=== PATIENT | female | born 1995 | race Caucasian/White ===

== ENCOUNTER 2022-08-19 15:44 | Outpatient (REF) | payer OTHER, SELFPAY ==
--- NOTE | ~2022-08-19 | US_ITS ---
EXAMINATION: US PELVIS CLINICAL INFORMATION: Menorrhagia. COMPARISON: None available. TECHNIQUE: Ultrasound of the pelvis is performed using both transabdominal and transvaginal transducers along with Doppler. Transvaginal imaging is performed due to inadequate visualization transabdominally. FINDINGS: Uterus: The uterus is anteverted, anteflexed and measures 9.4 cm in length, 4.1 cm in AP, and 5.8 cm in transverse dimension. The double wall endometrial thickness is 1.0 cm. The uterus is smooth in contour and has normal myometrial echogenicity. No visible fibroid. Adnexa: Both ovaries are visualized. There is normal color-flow to the adnexa. There is no ovarian torsion. There is no pelvic ascites or fluid collection. Right ovary measures 3.3 x 2.4 x 2.8 cm and volume 11.6 mL. Left ovary is not visualized. There is no free fluid in the cul-de-sac. US/US pelvic and transvaginal IMPRESSION: 1. Unremarkable uterus and right ovary. 2. The left ovary is not seen. 3. There is no free fluid in the cul-de-sac.
== END 2022-08-19 15:45 | disposition home or self-care (01) ==
LOC: HO.US 15:44
PROVIDERS: Visit Provider Internal Medicine
DX: N95.2 Postmenopausal atrophic vaginitis (principal); D50.8 Other iron deficiency anemias
CPT/HCPCS: 76830; 76856

== ENCOUNTER 2022-10-25 15:47 | Outpatient (REF) | payer OTHER, SELFPAY ==
[2022-10-25 17:26] LABS: MANUAL DIFF FLAG NO
[2022-10-25 17:42] LABS: Basophils Percent Auto 0.5 % (0-2); Eosinophils Absolute Auto 0.2 X10*3/uL (0.0-0.4); Eosinophils Percent Auto 2.4 % (0-4); Hematocrit 39.6 % (37.0-47.0); Hemoglobin 12.2 g/dl (12.0-16.0); Imm Gran Abs Auto 0.02 X10*3/uL (0.00-0.03); Imm Gran Pct Auto 0.3 % (0.0-0.4); Lymphocytes Absolute Auto 2.2 X10*3/uL (1.2-4.9); Lymphocytes Percent Auto 28.5 % (20-40); Mean Corpuscular HGB Conc 30.8 g/dl (31.0-35.0); Mean Corpuscular Hemoglobin 24.1 pg (27.0-33.0); Mean Corpuscular Volume 78.1 fL (80.0-98.0); Mean Platelet Volume 11.9 fL (9.4-12.3); Monocytes Absolute Auto 0.8 X10*3/uL (0.1-1.2); Monocytes Percent Auto 9.6 % (2-11); Neutrophils Absolute Auto 4.6 x10*3/uL (2.0-8.3); Neutrophils Percent Auto 58.7 % (45-73); Platelet Count 286 X10*3/uL (160-400); Red Blood Count 5.07 X10*6/uL (4.20-5.50); Red Cell Distribution Width 17.4 % (11.0-16.0); White Blood Count 7.8 X10*3/uL (4.8-10.8)
[2022-10-25 18:03] LABS: Alanine Aminotransferase 17 U/L (0-31); Albumin Level 4.2 g/dL (3.5-5.0); Alkaline Phosphatase 42 U/L (39-117); Aspartate Amino Transferase 16 U/L (5-31); Bilirubin Direct 0.1 mg/dL (0.0-0.5); Bilirubin Total 0.3 mg/dL (0.0-1.0); Iron 27 mcg/dL (30-160); Percent Iron Saturation 8 % (15-50); Total Iron Binding Capacity 341 mcg/dL (228-428); Total Protein 7.9 g/dL (6.5-8.0); Unsaturated Iron Binding 314 ug/dL
[2022-10-25 18:19] LABS: Ferritin 18 ng/mL (10-122)
== END 2022-10-25 15:48 | disposition home or self-care (01) ==
LOC: HO.HHCL 15:47
PROVIDERS: Visit Provider Internal Medicine
DX: D50.0 Iron deficiency anemia secondary to blood loss (chronic) (principal); E55.9 Vitamin D deficiency, unspecified
CPT/HCPCS: 36415; 80076; 82728; 83540; 85025

== ENCOUNTER 2023-03-03 17:03 | Inpatient (IN) | payer OTHER, SELFPAY ==
--- NOTE | ~2023-03-03 | XR_ITS ---
EXAMINATION: XR CHEST 2 VIEW CLINICAL INFORMATION: Weakness and dizziness COMPARISON: None TECHNIQUE: PA and lateral views of the chest obtained. FINDINGS: The lungs are clear. There are no pleural effusions. The cardiomediastinal silhouette is normal. XR/XR chest 2V IMPRESSION: No acute cardiopulmonary disease.
--- NOTE | 2023-03-03 17:32 | ED.GENADULT ---
HPI - General Adult General Chief complaint: Dizziness Stated complaint: weakness,dizziness Time Seen by Provider: 03/03/23 19:39 Source: patient Mode of arrival: ambulatory Limitations: no limitations History of Present Illness HPI narrative: Patient with no history of diabetes runs in family comes here for few days of increased thirst increased appetite increased urination feeling dizzy lightheaded on arrival patient's blood sugar was 735. Patient last physical in 09/03 with normal labs no history of steroid use no recent no nausea patient vomited once earlier today no abdominal pain no history of pancreatitis Related Data Home Medications Medication Instructions Recorded Confirmed No Known Home Meds 03/03/23 03/03/23 Allergies Allergy/AdvReac Type Severity Reaction Status Date / Time No Known Allergies Allergy Verified 03/03/23 17:35 Review of Systems Review of Systems: Yes all other systems are reviewed and are negative [facility] Social History Social History Household Members: Family Housing: Apartment Do you presently have visiting nurse or other home services: No Patient Tobacco Use Status: Never used Tobacco Smoked in Last 30 Days: No Use of substances other than those prescribed or required for medical reasons: No Have you been hit, kicked, punched, or otherwise hurt by someone within the past year? If so, by whom?: No Do you feel safe in your current relationship?: No Is there a partner from a previous relationship who is making you feel unsafe now?: No Are you made to feel afraid or neglected: No Advance Directives: No Advance Directives Information Provided: No Do you have thoughts of harming others: None Do you have a plan to hurt others: No Plan Recently lost weight without trying: No How much weight loss: Not applicable Eating poorly because of decreased appetite: No Nutrition screen score: 0 Nutrition Risks: No Nutritional Risk Patient : No : No Poor oral hygiene: No Physical Exam ED Vital Signs: Vital Signs - 24 hr 03/03/23 17:33 03/03/23 20:07 Temperature 98.0 F 98.3 F Pulse Rate 92 94 Respiratory Rate 16 20 Blood Pressure 156/88 H 137/88 Pulse Oximetry 99 97 Oxygen Delivery Method Room Air Room Air BMI result Body Mass Index 33.2 Appearance: Alert. Oriented X3. No acute distress. Eyes: PERRLA, no pallor / icterus ENT: Pharynx normal. Oral Mucosa dry Neck: Normal inspection. Neck supple. CVS: Normal heart rate and rhythm. Pulses normal. Respiratory: No respiratory distress. Equal air entry bilateral, no wheezing/rales/rhonchi Abdomen: Soft and nontender. Bowel sounds are present, no mass palpable, no CVA tenderness Skin: Skin warm and dry. Normal skin color. Normal skin turgor. Extremities: No lower extremity edema. No calf tenderness Neuro: Oriented X 3. No motor deficit. Course Course Course Narrative: RME performed by Gabby Henao PA-C. Patient is a 27 year old assigned female at presenting to the emergency department with weakness and dizziness. Labs, imaging, and swabs ordered. Patient placed back in the waiting room pending room availability and results. Medications Administered Generic Name Dose Route Start Last Admin Trade Name Freq PRN Reason Stop Dose Admin Sodium Chloride 1,000 mls @ 125 mls/hr 03/03/23 20:22 03/03/23 21:59 Ns IVCONT 03/04/23 04:21 125 mls/hr .Q8H ONE Infusion Insulin Glargine 10 unit 03/03/23 21:00 03/03/23 22:01 Insulin Glargine,Hum.Rec.Anlog 100 Unit/Ml 10 Ml Vial SUBCUT 10 unit BEDTIME BENNIE Administration Insulin Human Lispro 0 unit 03/03/23 21:00 03/03/23 21:59 Insulin Lispro 100 Unit/Ml 3 Ml Vial SUBCUT 10 unit QIDACHS BENNIE Administration Protocol Sodium Chloride 3 ml 03/04/23 00:00 03/04/23 00:31 0.9 % Sodium Chloride Flush 3 Ml Syringe IVFLUSH 3 ml QSHIFT BENNIE Administration Discontinued Medications Generic Name Dose Route Start Last Admin Trade Name Freq PRN Reason Stop Dose Admin Sodium Chloride 1,000 mls @ 999 mls/hr 03/03/23 19:46 03/03/23 20:37 Ns IV 03/03/23 20:46 Infused .Q1H1M ONE Infusion Sodium Chloride 1,000 mls @ 999 mls/hr 03/03/23 20:47 03/03/23 21:51 Ns IV 03/03/23 21:47 Infused .Q1H1M ONE Infusion Insulin Human Lispro 14 unit 03/03/23 19:46 03/03/23 20:06 Insulin Lispro 100 Unit/Ml 3 Ml Vial SUBCUT 03/03/23 19:47 14 unit ONCE ONE Administration Insulin Human Regular 5 unit 03/03/23 20:21 03/03/23 20:41 Insulin Regular, Human 100 Unit/Ml 3 Ml Vial IVPUSH 03/03/23 20:22 5 unit ONCE ONE Administration Medical Decision Making Medical Decision Making [facility] Narrative: Patient with hyperglycemia type 1 diabetes with mild DKA which resolved after IV fluids and insulin admit patient for further management patient does have pseudohyponatremia secondary to hyperglycemia Differential Diagnosis Differential Diagnoses: The differential diagnosis associated with the presentation includes Diabetes/ ketoacidosis Admission/Observation Consideration of admission/observation: Escalation of care including admission/observation considered Consult Healthcare Provider Management of the patient was discussed with: Hospitalist Lab Data [facility] Lab Attestation statement: I reviewed the patient's lab results. 03/03/23 18:26 03/04/23 00:04 Labs: Lab Results 03/03/23 03/03/23 03/03/23 Range/Units 18: 19:51 20:11 WBC 9.2 (4.8-10.8) X10*3/uL RBC 5.09 (4.20-5.50) X10*6/uL Hgb 11.6 L (12.0-16.0) g/dl Hct 38.1 (37.0-47.0) % MCV 74.9 L (80.0-98.0) fL MCH 22.8 L (27.0-33.0) pg MCHC 30.4 L (31.0-35.0) g/dl RDW 13.9 (11.0-16.0) % Plt Count 274 (160-400) X10*3/uL MPV 12.7 H (9.4-12.3) fL Immature Gran % (Auto) 0.2 (0.0-0.4) % Neut % (Auto) 66.0 (45-73) % Lymph % (Auto) 22.7 (20-40) % [place] % (Auto) 9.4 (2-11) % Eos % (Auto) 1.0 (0-4) % Baso % (Auto) 0.7 (0-2) % Lymph # (Auto) 2.1 (1.2-4.9) X10*3/uL [place] # (Auto) 0.9 (0.1-1.2) X10*3/uL Eos # (Auto) 0.1 (0.0-0.4) X10*3/uL Baso # (Auto) 0.1 (0.0-0.2) X10*3/uL Abs Immat Gran (auto) 0.02 (0.00-0.03) X10*3/uL Absolute Neuts (auto) 6.1 (2.0-8.3) x10*3/uL Absolute Nucleated RBC 0.000 (0.0-0.012) X10*3/uL Nucleated RBC % (auto) 0.0 (0.0-0.2) /100WBC PT 11.1 (11.1-13.3) SEC INR 0.9 (0.9-1.1) APTT 30.1 (26.0-36.4) SEC Sodium 128 L (135-145) mmol/L Potassium 3.8 (3.3-5.1) mmol/L Chloride 96 (96-108) mmol/L Carbon Dioxide 18 L (22-29) mmol/L Anion Gap 18 (12-20) BUN 15 (9-16) mg/dL Creatinine 1.22 (0.5-1.4) mg/dL Estim Creat Clear Calc 72.8 Estimated GFR 54 POC Glucose > 600 H* (60-115) mg/dL Random Glucose 735 H* (60-115) mg/dL Calcium 9.4 (8.4-10.2) mg/dL Magnesium 1.9 (1.6-2.6) mg/dL Total Bilirubin 0.5 (0.0-1.0) mg/dL AST 11 (5-31) U/L ALT 14 (0-31) U/L Alkaline Phosphatase 63 (39-117) U/L Troponin I High Sens < 2.7 (<3.5-17.0) ng/L Total Protein 8.5 H (6.5-8.0) g/dL Albumin 4.4 (3.5-5.0) g/dL Beta-Hydroxybutyrate 4.44 H (0.02-0.27) mmol/L Beta HCG, Quant < 2 mIU/mL Urine Color Yellow Urine Appearance Clear Urine pH 5.0 (5.0-9.0) Ur Specific [place] >= 1.030 H (1.005-1.025) Urine Protein Negative (Neg-Trace) mg/dL Urine Glucose (UA) >=1000 H (Negative) mg/dL Urine Ketones 80 (Negative) mg/dL Urine Blood Negative (Negative) Urine Nitrite Negative (Negative) Ur Leukocyte Esterase Negative (Negative) Urine RBC 0-2 (0-2) /HPF Urine WBC 0-5 (0-5) /HPF Ur Squamous Epith Cells 0-2 (0-2) /HPF Urine Bacteria None Seen (None Seen) Hyaline Casts 3-5 (0-2) /LPF Urine Opiates Screen Not Detected (Not Detect) Urine Fentanyl Screen Not Detected (Not Detect) Ur Barbiturates Screen Not Detected (Not Detect) Ur Phencyclidine Scrn Not Detected (Not Detect) Ur Amphetamines Screen Not Detected (Not Detect) U Benzodiazepines Scrn Not Detected (Not Detect) Urine Cocaine Screen Not Detected (Not Detect) U Marijuana (THC) Screen Not Detected (Not Detect) Influenza Type A (PCR) NEGATIVE (Negative) Influenza Type B (PCR) NEGATIVE (Negative) RSV RNA Qual (PCR) NEGATIVE (Negative) SARS-CoV-2 RNA (RT-PCR) NEGATIVE (Negative) Independent Interpretation I performed an independent interpretation of an: EKG Interpretation: Normal sinus rhythm heart rate 104 beats per minute sinus tachycardia no acute ST change and no acute ischemia Critical Care Time Critical Care Time Critical Care Time: Yes Total Critical Care Time: 55 Attestation: The patient was critically ill with a high probability of imminent or life threatening deterioration. I spent greater than 60 minutes of discontinuous time evaluating the patient,delivering critical care at the bedside, discussing and evaluating pertinent data with consultants. Critical care time does not include time spent performing separately billable procedures or teaching. Total time spent performing critical care was 55 minutes. Discharge Plan Discharge Clinical Impression: Diabetic ketoacidosis associated with type 1 diabetes mellitus Patient Disposition: Admitted As Inpatient
[2023-03-03 17:33] VITALS: BP 156/88; PULSE 92; RESP 16; TEMP 36.7; O2SAT 99; BMI 33.2
--- NOTE | 2023-03-03 17:33 | ECG_ITS ---
Test Reason : DIZZINESS Blood Pressure : / mmHG Vent. Rate : 104 BPM Atrial Rate : 104 BPM P-R Int : 128 ms QRS Dur : 078 ms QT Int : 366 ms P-R-T Axes : 070 028 040 degrees QTc Int : 481 ms Sinus tachycardia Possible Left atrial enlargement Borderline ECG No previous ECGs available Referred By: Gabby Henao Electronically Signed By:MANUELA WING MD
[2023-03-03 18:32] LABS: MANUAL DIFF FLAG NO
[2023-03-03 18:39] LABS: INTERNATIONAL NORM RATIO 0.9 (0.9-1.1); Prothrombin Time 11.1 SEC (11.1-13.3)
[2023-03-03 18:41] LABS: Partial Thromboplastin Time 30.1 SEC (26.0-36.4)
[2023-03-03 18:51] LABS: Basophils Absolute Auto 0.1 X10*3/uL (0.0-0.2); Basophils Percent Auto 0.7 % (0-2); Eosinophils Absolute Auto 0.1 X10*3/uL (0.0-0.4); Hematocrit 38.1 % (37.0-47.0); Hemoglobin 11.6 g/dl (12.0-16.0); Imm Gran Abs Auto 0.02 X10*3/uL (0.00-0.03); Imm Gran Pct Auto 0.2 % (0.0-0.4); Lymphocytes Absolute Auto 2.1 X10*3/uL (1.2-4.9); Lymphocytes Percent Auto 22.7 % (20-40); Mean Corpuscular HGB Conc 30.4 g/dl (31.0-35.0); Mean Corpuscular Hemoglobin 22.8 pg (27.0-33.0); Mean Corpuscular Volume 74.9 fL (80.0-98.0); Mean Platelet Volume 12.7 fL (9.4-12.3); Monocytes Absolute Auto 0.9 X10*3/uL (0.1-1.2); Monocytes Percent Auto 9.4 % (2-11); Neutrophils Absolute Auto 6.1 x10*3/uL (2.0-8.3); Platelet Count 274 X10*3/uL (160-400); Red Blood Count 5.09 X10*6/uL (4.20-5.50); Red Cell Distribution Width 13.9 % (11.0-16.0); White Blood Count 9.2 X10*3/uL (4.8-10.8)
[2023-03-03 19:03] LABS: Troponin-I High Sensitivity < 2.7 ng/L (<3.5-17.0)
[2023-03-03 19:06] LABS: Alanine Aminotransferase 14 U/L (0-31); Albumin Level 4.4 g/dL (3.5-5.0); Alkaline Phosphatase 63 U/L (39-117); Anion Gap 18 (12-20); Aspartate Amino Transferase 11 U/L (5-31); Bilirubin Total 0.5 mg/dL (0.0-1.0); Blood Urea Nitrogen 15 mg/dL (9-16); Calcium 9.4 mg/dL (8.4-10.2); Carbon Dioxide 18 mmol/L (22-29); Chloride 96 mmol/L (96-108); Creatinine Clr Calc Pharmacy 72.8; Estimated Glomerular Filt Rate 54; Glucose Random 735 mg/dL (60-115); HCG Quantitative < 2 mIU/mL; Magnesium 1.9 mg/dL (1.6-2.6); Potassium 3.8 mmol/L (3.3-5.1); Sodium 128 mmol/L (135-145); Total Protein 8.5 g/dL (6.5-8.0)
[2023-03-03 19:12] LABS: Influenza A PCR NEGATIVE (Negative); Influenza B PCR NEGATIVE (Negative); Resp Syncy Virus RNA Qual PCR NEGATIVE (Negative); SARS COV2 PCR INHOUSE NEGATIVE (Negative)
--- NOTE | 2023-03-03 19:24 | PC.NURSE ---
critical lab result glucose 735 pt brought back from the waiting room and prooviders made aware. pt state she feels dizzy. family history of diabeties.
[2023-03-03 19:56] LABS: Glucose, Whole Blood > 600 mg/dL (60-115)
[2023-03-03] MEDS: 0.9 % Sodium Chloride 1,000 ML 999 ML IV ×2 (20:03→20:55)
[2023-03-03 20:06] LABS: Beta-Hydroxybutyrate 4.44 mmol/L (0.02-0.27)
[2023-03-03] MEDS: Insulin Lispro 100 UNIT/ML 3 ML VIAL 14 UNIT SUBCUT (20:06)
[2023-03-03 20:07] VITALS: BP 137/88; PULSE 94; RESP 20; TEMP 36.8; O2SAT 97
[2023-03-03 20:18] LABS: Appearance Urine Clear; Color Urine Yellow; Glucose Urine UA >=1000 mg/dL (Negative); Leukocyte Esterase Urine Negative (Negative); Nitrite Urine Negative (Negative); Specific Gravity - Urine >= 1.030 (1.005-1.025); UMIC TRIGGER UACC YES; Urine Blood Negative (Negative); Urine Ketones 80 mg/dL (Negative); Urine Protein Negative (Neg-Trace)
[2023-03-03 20:21] LABS: Bacteria Urine None Seen (None Seen); RBC Urine 0-2 /HPF (0-2); Squamous Epithelial Cell Urine 0-2 /HPF (0-2); WBC Urine 0-5 /HPF (0-5)
--- NOTE | 2023-03-03 20:21 | P.HPHOSP_ITS ---
History of Present Illness Date of Service: 03/03/23 Chief Complaint: Polyuria polydipsia This is a 27-year-old female with no pertinent past medical history and not on prescription medications who presents to the emergency department for evaluation of polyuria and polydipsia. Patient states her symptoms started 1 week prior to presentation. No history of similar symptoms in the past. Does have a family history of diabetes mellitus, unknown type 1 or type 2. Patient states she has no pertinent past medical history and only takes [id number] allergy medications p.r.n.. On the day of presentation, patient also started having nausea and nonbloody emesis. Denies tobacco use but admits occasional alcohol use. No fever, chills, chest discomfort, palpitations, shortness of breath, abdominal pain, changes in bowel habits. In the emergency department, blood glucose found to be significantly elevated. Review of Systems 2 Constitutional: Constitutional: Reports fatigue and Reports lethargy ENT: Reports system reviewed and no additional complaints, except as documented Cardiovascular: Cardiovascular: Reports no additional cardiovascular complaints Respiratory: Respiratory: Reports no additional respiratory complaints Gastrointestinal: Gastrointestinal: Reports no additional gastrointestinal complaints Genitourinary: Genitourinary: Reports no additional female genitourinary complaints Endocrine: Endocrine: Reports fatigue, Reports polydipsia and Reports polyuria PMFSH Pertinent family history: No family history of early CAD Social History Smoked in Last 30 Days: No Use of substances other than those prescribed or required for medical reasons: No Advance Directives: No Advance Directives Information Provided: No Meds Allergies Allergy/AdvReac Type Severity Reaction Status Date / Time No Known Allergies Allergy Verified 03/03/23 17:35 Active Medications: Current Medications Sodium Chloride (Ns) 1,000 mls @ 999 mls/hr IV .Q1H1M ONE Stop: 03/03/23 20:46 Last Admin: 03/03/23 20:03 Dose: 999 mls/hr Home Medications Medication Instructions Recorded Confirmed Last Taken Type No Known Home Meds 03/03/23 03/03/23 Unknown History Physical Exam 2 Vital Signs and Narrative: Vital Signs: Last Vital Signs Temp 98.3 F 03/03/23 20:07 Pulse 94 03/03/23 20:07 Resp 20 03/03/23 20:07 BP 137/88 11/20/23 20:07 Pulse Ox 97 03/03/23 20:07 O2 Del Method Room Air 03/03/23 20:07 BMI result Body Mass Index 33.2 Middle-aged female lying in bed in no distress Neck supple, no JVD Regular rate and rhythm, S1-S2 heard Regular breath sounds bilaterally, no wheezing or crackles appreciated Abdomen soft nontender, no guarding, no rigidity Patient is awake, alert and oriented to self, place, time and person ; no focal motor deficit Psych: Normal mood No pedal edema Results Labs 03/03/23 18:26 03/03/23 18:26 Labs: Laboratory Results - last 24 hr 03/03/23 03/03/23 03/03/23 18:26 19:51 20:11 MCV 74.9 L MCH 22.8 L MCHC 30.4 L RDW 13.9 Plt Count 274 MPV 12.7 H Immature Gran % (Auto) 0.2 Neut % (Auto) 66.0 Lymph % (Auto) 22.7 [place] % (Auto) 9.4 Eos % (Auto) 1.0 Baso % (Auto) 0.7 Lymph # (Auto) 2.1 [place] # (Auto) 0.9 Eos # (Auto) 0.1 Baso # (Auto) 0.1 Abs Immat Gran (auto) 0.02 Absolute Neuts (auto) 6.1 Absolute Nucleated RBC 0.000 Nucleated RBC % (auto) 0.0 PT 11.1 INR 0.9 APTT 30.1 Anion Gap 18 Estim Creat Clear Calc 72.8 Estimated GFR 54 POC Glucose > 600 H* Random Glucose 735 H* Calcium 9.4 Magnesium 1.9 Total Bilirubin 0.5 AST 11 ALT 14 Alkaline Phosphatase 63 Total Protein 8.5 H Albumin 4.4 Beta-Hydroxybutyrate 4.44 H Beta HCG, Quant < 2 Urine Color Yellow Urine Appearance Clear Urine pH 5.0 Ur Specific [place] >= 1.030 H Urine Protein Negative Urine Glucose (UA) >=1000 H Urine Ketones 80 Urine Blood Negative Urine Nitrite Negative Ur Leukocyte Esterase Negative Influenza Type A (PCR) NEGATIVE Influenza Type B (PCR) NEGATIVE RSV RNA Qual (PCR) NEGATIVE SARS-CoV-2 RNA (RT-PCR) NEGATIVE Imaging Radiologist's Impressions: Impressions Chest X-Ray 03/03/23 18:45 IMPRESSION: No acute cardiopulmonary disease. Assessment and Plan (1) Hyperglycemia due to diabetes mellitus: Status: Acute Plan This is a 27-year-old female with no pertinent past medical history and not on prescription medications who presents to the emergency department for evaluation of polyuria and polydipsia. #. Uncontrolled new onset diabetes mellitus with hyperglycemia: Mild DKA upon admission which resolved. Initiating basal bolus insulin regimen. Continue IV crystalloid resuscitation. Diabetes Education while inpatient. Closely monitor blood glucose and optimize anti hyperglycemics prior to discharge. #. Microcytic anemia: Obtaining iron panel #. Pseudo hyponatremia due to hyperglycemia Diet: Diabetic diet DVT prophylaxis: None. Patient is ambulatory Admit as inpatient and will require two night minimum hospital stay for blood glucose monitoring, optimization of antihyperglycemics (as above), which is not possible in a lesser acute setting. Quality Stroke Does the patient have a stroke diagnosis?: No VTE Prior VTE?: No VTE Risk Level:: Medical - low VTE Device Contraindication: Treatment Not Indicated VTE Drug Contraindication: Treatment Not Indicated
[2023-03-03 20:34] LABS: Amphetamine Screen Urine Not Detected (Not Detect); Barbiturates, Urine Not Detected (Not Detect); Benzodiazepines Screen Urine Not Detected (Not Detect); Cannabinoid Screen Urine Not Detected (Not Detect); Cocaine Screen Urine Not Detected (Not Detect); Fentanyl, urine Not Detected (Not Detect); Opiate Screen Urine Not Detected (Not Detect); Phencyclidine Screen Urine Not Detected (Not Detect)
[2023-03-03] MEDS: 0.9 % Sodium Chloride 1,000 ML 125 ML IVCONT (20:40)
[2023-03-03] MEDS: Insulin Regular, Human 100 UNIT/ML 3 ML VIAL IVPUSH (20:41)
[2023-03-03 20:46] LABS: Glucose, Whole Blood 599 mg/dL (60-115)
[2023-03-03 20:46] LABS: Glucose, Whole Blood > 600 mg/dL (60-115)
[2023-03-03 21:01] LABS: VBG Base Excess -9.1 mmol/L; VBG HCO3 15 mmol/L (22-26); VBG pCO2 30 mmHg; VBG pH 7.31 (7.32-7.43); VBG pO2 50 mmHg
[2023-03-03 21:06] LABS: Iron 53 mcg/dL (30-160); Percent Iron Saturation 16 % (15-50); Total Iron Binding Capacity 327 mcg/dL (228-428); Unsaturated Iron Binding 274 ug/dL
[2023-03-03 21:11] LABS: Venous Blood Gas Refer to POC result
[2023-03-03 21:24] LABS: Glucose, Whole Blood 431 mg/dL (60-115)
[2023-03-03 21:52] VITALS: BP 122/62; PULSE 102; RESP 20; O2SAT 99
[2023-03-03 21:58] LABS: Glucose, Whole Blood 351 mg/dL (60-115)
[2023-03-03] MEDS: Insulin Lispro 100 UNIT/ML 3 ML VIAL SUBCUT (21:59)
[2023-03-03] MEDS: Insulin Glargine,Hum.rec.anlog 100 UNIT/ML 10 ML VIAL 10 UNIT SUBCUT (22:01)
[2023-03-03 23:52] VITALS: BP 133/62; PULSE 89; RESP 20; TEMP 36.1; O2SAT 96
[2023-03-04] VITALS (7 sets, daily range): BP systolic 111–135; BP diastolic 62–88; PULSE 80–89; RESP 12–20; TEMP 36–36.6; O2SAT 96–100; BMI 34.2
[2023-03-04 00:28] LABS: Anion Gap 12 (12-20); Blood Urea Nitrogen 12 mg/dL (9-16); Calcium 8.5 mg/dL (8.4-10.2); Carbon Dioxide 19 mmol/L (22-29); Chloride 108 mmol/L (96-108); Estimated Glomerular Filt Rate > 60; Glucose Random 181 mg/dL (60-115); Potassium 3.1 mmol/L (3.3-5.1); Sodium 136 mmol/L (135-145)
[2023-03-04] MEDS: 0.9 % Sodium Chloride Flush 3 ML SYRINGE IVFLUSH ×4 (00:31→22:15)
[2023-03-04 05:20] LABS: Estimated Average Glucose 272 mg/dL; Hemoglobin A1c % 11.1 % (<6.0)
[2023-03-04] MEDS: Potassium Chloride Packet 20 MEQ PACKET 40 MEQ PO (05:45)
--- NOTE | 2023-03-04 07:12 | PHA.MEDREC ---
Pharmacy Consult ? Medication Reconciliation Pharmacy has completed the medication reconciliation.med rec complete by Brissa on 03/03
[2023-03-04 07:41] LABS: Glucose, Whole Blood 210 mg/dL (60-115)
[2023-03-04 07:49] LABS: Glucose, Whole Blood > 600 mg/dL (60-115)
[2023-03-04 07:57] LABS: MANUAL DIFF FLAG NO
[2023-03-04 08:09] LABS: Basophils Absolute Auto 0.1 X10*3/uL (0.0-0.2); Basophils Percent Auto 0.8 % (0-2); Eosinophils Absolute Auto 0.2 X10*3/uL (0.0-0.4); Eosinophils Percent Auto 2.6 % (0-4); Hemoglobin 11.3 g/dl (12.0-16.0); Imm Gran Abs Auto 0.02 X10*3/uL (0.00-0.03); Imm Gran Pct Auto 0.3 % (0.0-0.4); Lymphocytes Absolute Auto 2.5 X10*3/uL (1.2-4.9); Mean Corpuscular HGB Conc 30.5 g/dl (31.0-35.0); Mean Corpuscular Hemoglobin 23.2 pg (27.0-33.0); Monocytes Absolute Auto 0.6 X10*3/uL (0.1-1.2); Monocytes Percent Auto 8.8 % (2-11); Neutrophils Absolute Auto 3.8 x10*3/uL (2.0-8.3); Neutrophils Percent Auto 52.5 % (45-73); Platelet Count 263 X10*3/uL (160-400); Red Blood Count 4.87 X10*6/uL (4.20-5.50); Red Cell Distribution Width 14.1 % (11.0-16.0); White Blood Count 7.2 X10*3/uL (4.8-10.8)
[2023-03-04] MEDS: Insulin Lispro 100 UNIT/ML 3 ML VIAL SUBCUT ×4 (08:18→22:03)
[2023-03-04 08:23] LABS: Anion Gap 14 (12-20); Blood Urea Nitrogen 9 mg/dL (9-16); Calcium 8.2 mg/dL (8.4-10.2); Carbon Dioxide 18 mmol/L (22-29); Chloride 109 mmol/L (96-108); Creatinine Clr Calc Pharmacy 118.7; Estimated Glomerular Filt Rate > 60; Glucose Random 231 mg/dL (60-115); Potassium 3.8 mmol/L (3.3-5.1); Sodium 137 mmol/L (135-145)
--- NOTE | 2023-03-04 09:33 | MHC.CM.PN ---
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 PT ALSO REQUESTED CM MAKE A FOLLOW UP APPT W/HER PCP D/T NEW DIABETES, MESSAGE SENT TO [facility] SPECIAL[facility]. PT VERIFIES PCP IS VASILIY PIZARRO HOWEVER [facility] INSURANCE CLAIMS SPECIALIST TO CONFIRM, FULLY VACCINATED AGAINST COVID 19 EXCEPT THIS YEARS BOOSTER, PT EDUCATED ON AND DECLINES TO COMPLETE A HCP.
[2023-03-04 10:58] LABS: Glucose, Whole Blood 378 mg/dL (60-115)
--- NOTE | 2023-03-04 12:11 | HO.PM.IMPN ---
Subjective Subjective Date of Service: 03/04/23 Review of Systems Follow up new onset DM No pain, nausea or vomiting Physical Exam Vital Signs: Vital Signs: Last Vital Signs Temp 97.8 F 03/04/23 11:00 Pulse 86 03/04/23 11:00 Resp 18 03/04/23 11:00 BP 123/66 03/04/23 11:00 Pulse Ox 100 03/04/23 11:00 O2 Del Method Room Air 03/04/23 11:00 BMI result Body Mass Index 34.2 Appearing in no acute distress lung sounds are clear to auscultation heart regular rate rhythm, clear S1, S2 positive bowel sounds, abdomen is soft, nontender neuro patient is alert x3, no focal deficits Objective Data Active Medications Acetaminophen (Acetaminophen 325 Mg Tablet) 650 mg PO Q6H PRN PRN Reason: Pain, Mild (Pain Scale 1-3) Dextrose (Dextrose 50 % 25 Gm/50 Ml Syringe) 25 gm IVPUSH Q15M PRN; Protocol PRN Reason: per Hypoglycemia Standing Ord. Glucose (Glucose Gel 15 Gm Gel..Gram.) 15 gm PO Q15M PRN; Protocol PRN Reason: per Hypoglycemia Standing Ord. Insulin Glargine (Insulin Glargine,Hum.Rec.Anlog 100 Unit/Ml 10 Ml Vial) 10 unit SUBCUT BEDTIME [facility] Last Admin: 03/03/23 22:01 Dose: 10 unit Documented By: DRAGAN Insulin Human Lispro (Insulin Lispro 100 Unit/Ml 3 Ml Vial) 0 unit SUBCUT QIDACHS [facility]; Protocol Last Admin: 03/04/23 08:18 Dose: 4 unit Documented By: AFIA Melatonin (Melatonin 3 Mg Tablet) 6 mg PO BEDTIME PRN PRN Reason: Insomnia Ondansetron HCl (Ondansetron Hcl 4 Mg/2 Ml Vial) 4 mg IVPUSH Q8H PRN PRN Reason: Nausea and Vomiting Sodium Chloride (0.9 % Sodium Chloride Flush 3 Ml Syringe) 3 ml IVFLUSH [facility] Last Admin: 03/04/23 08:18 Dose: 3 ml Documented By: AFIA Labs 03/04/23 07:23 03/04/23 07:23 Labs: Laboratory Results - last 24 hr 11/20/23 11/20/23 11/20/23 18:26 19:51 19:52 MCV 74.9 L MCH 22.8 L MCHC 30.4 L RDW 13.9 Plt Count 274 MPV 12.7 H Immature Gran % (Auto) 0.2 Neut % (Auto) 66.0 Lymph % (Auto) 22.7 [place] % (Auto) 9.4 Eos % (Auto) 1.0 Baso % (Auto) 0.7 Lymph # (Auto) 2.1 [place] # (Auto) 0.9 Eos # (Auto) 0.1 Baso # (Auto) 0.1 Abs Immat Gran (auto) 0.02 Absolute Neuts (auto) 6.1 Absolute Nucleated RBC 0.000 Nucleated RBC % (auto) 0.0 PT 11.1 INR 0.9 APTT 30.1 VBG pH VBG pCO2 VBG pO2 VBG HCO3 VBG O2 Saturation VBG Base Excess Anion Gap 18 Estim Creat Clear Calc 72.8 Estimated GFR 54 POC Glucose > 600 H* > 600 H* Random Glucose 735 H* Estimat Average Glucose Hemoglobin A1c % Calcium 9.4 Magnesium 1.9 Iron TIBC % Saturation Unsat Iron Binding Total Bilirubin 0.5 AST 11 ALT 14 Alkaline Phosphatase 63 Total Protein 8.5 H Albumin 4.4 Beta-Hydroxybutyrate 4.44 H Beta HCG, Quant < 2 Hold Yellow Top Urine Color Urine Appearance Urine pH Ur Specific [place] Urine Protein Urine Glucose (UA) Urine Ketones Urine Blood Urine Nitrite Ur Leukocyte Esterase Urine RBC Urine WBC Ur Squamous Epith Cells Urine Bacteria Hyaline Casts Urine Opiates Screen Urine Fentanyl Screen Ur Barbiturates Screen Ur Phencyclidine Scrn Ur Amphetamines Screen U Benzodiazepines Scrn Urine Cocaine Screen U Marijuana (THC) Screen Influenza Type A (PCR) NEGATIVE Influenza Type B (PCR) NEGATIVE RSV RNA Qual (PCR) NEGATIVE SARS-CoV-2 RNA (RT-PCR) NEGATIVE 03/03/23 03/03/23 03/03/23 20:11 20:36 20:40 MCV MCH MCHC RDW Plt Count MPV Immature Gran % (Auto) Neut % (Auto) Lymph % (Auto) [place] % (Auto) Eos % (Auto) Baso % (Auto) Lymph # (Auto) [place] # (Auto) Eos # (Auto) Baso # (Auto) Abs Immat Gran (auto) Absolute Neuts (auto) Absolute Nucleated RBC Nucleated RBC % (auto) PT INR APTT VBG pH VBG pCO2 VBG pO2 VBG HCO3 VBG O2 Saturation VBG Base Excess Anion Gap Estim Creat Clear Calc Estimated GFR POC Glucose > 600 H* 599 H* Random Glucose Estimat Average Glucose Hemoglobin A1c % Calcium Magnesium Iron TIBC % Saturation Unsat Iron Binding Total Bilirubin AST ALT Alkaline Phosphatase Total Protein Albumin Beta-Hydroxybutyrate Beta HCG, Quant Hold Yellow Top Urine Color Yellow Urine Appearance Clear Urine pH 5.0 Ur Specific [place] >= 1.030 H Urine Protein Negative Urine Glucose (UA) >=1000 H Urine Ketones 80 Urine Blood Negative Urine Nitrite Negative Ur Leukocyte Esterase Negative Urine RBC 0-2 Urine WBC 0-5 Ur Squamous Epith Cells 0-2 Urine Bacteria None Seen Hyaline Casts 3-5 Urine Opiates Screen Not Detected Urine Fentanyl Screen Not Detected Ur Barbiturates Screen Not Detected Ur Phencyclidine Scrn Not Detected Ur Amphetamines Screen Not Detected U Benzodiazepines Scrn Not Detected Urine Cocaine Screen Not Detected U Marijuana (THC) Screen Not Detected Influenza Type A (PCR) Influenza Type B (PCR) RSV RNA Qual (PCR) SARS-CoV-2 RNA (RT-PCR) 03/03/23 03/03/23 03/03/23 20:45 20:51 21:20 MCV MCH MCHC RDW Plt Count MPV Immature Gran % (Auto) Neut % (Auto) Lymph % (Auto) [place] % (Auto) Eos % (Auto) Baso % (Auto) Lymph # (Auto) [place] # (Auto) Eos # (Auto) Baso # (Auto) Abs Immat Gran (auto) Absolute Neuts (auto) Absolute Nucleated RBC Nucleated RBC % (auto) PT INR APTT VBG pH 7.31 L VBG pCO2 30 VBG pO2 50 VBG HCO3 15 L VBG O2 Saturation 77.0 VBG Base Excess -9.1 Anion Gap Estim Creat Clear Calc Estimated GFR POC Glucose 431 H* Random Glucose Estimat Average Glucose Hemoglobin A1c % Calcium Magnesium Iron 53 TIBC 327 % Saturation 16 Unsat Iron Binding 274 Total Bilirubin AST ALT Alkaline Phosphatase Total Protein Albumin Beta-Hydroxybutyrate Beta HCG, Quant Hold Yellow Top Urine Color Urine Appearance Urine pH Ur Specific [place] Urine Protein Urine Glucose (UA) Urine Ketones Urine Blood Urine Nitrite Ur Leukocyte Esterase Urine RBC Urine WBC Ur Squamous Epith Cells Urine Bacteria Hyaline Casts Urine Opiates Screen Urine Fentanyl Screen Ur Barbiturates Screen Ur Phencyclidine Scrn Ur Amphetamines Screen U Benzodiazepines Scrn Urine Cocaine Screen U Marijuana (THC) Screen Influenza Type A (PCR) Influenza Type B (PCR) RSV RNA Qual (PCR) SARS-CoV-2 RNA (RT-PCR) 03/03/23 03/04/23 03/04/23 21:54 00:04 07:23 MCV 76.0 L MCH 23.2 L MCHC 30.5 L RDW 14.1 Plt Count 263 MPV 13.0 H Immature Gran % (Auto) 0.3 Neut % (Auto) 52.5 Lymph % (Auto) 35.0 [place] % (Auto) 8.8 Eos % (Auto) 2.6 Baso % (Auto) 0.8 Lymph # (Auto) 2.5 [place] # (Auto) 0.6 Eos # (Auto) 0.2 Baso # (Auto) 0.1 Abs Immat Gran (auto) 0.02 Absolute Neuts (auto) 3.8 Absolute Nucleated RBC 0.000 Nucleated RBC % (auto) 0.0 PT INR APTT VBG pH VBG pCO2 VBG pO2 VBG HCO3 VBG O2 Saturation VBG Base Excess Anion Gap 12 14 Estim Creat Clear Calc 107.0 118.7 Estimated GFR > 60 > 60 POC Glucose 351 H* Random Glucose 181 H 231 H Estimat Average Glucose 272 Hemoglobin A1c % 11.1 H Calcium 8.5 D 8.2 L Magnesium Iron TIBC % Saturation Unsat Iron Binding Total Bilirubin AST ALT Alkaline Phosphatase Total Protein Albumin Beta-Hydroxybutyrate Beta HCG, Quant Hold Yellow Top See Note Urine Color Urine Appearance Urine pH Ur Specific [place] Urine Protein Urine Glucose (UA) Urine Ketones Urine Blood Urine Nitrite Ur Leukocyte Esterase Urine RBC Urine WBC Ur Squamous Epith Cells Urine Bacteria Hyaline Casts Urine Opiates Screen Urine Fentanyl Screen Ur Barbiturates Screen Ur Phencyclidine Scrn Ur Amphetamines Screen U Benzodiazepines Scrn Urine Cocaine Screen U Marijuana (THC) Screen Influenza Type A (PCR) Influenza Type B (PCR) RSV RNA Qual (PCR) SARS-CoV-2 RNA (RT-PCR) 03/04/23 03/04/23 07:31 10:55 MCV MCH MCHC RDW Plt Count MPV Immature Gran % (Auto) Neut % (Auto) Lymph % (Auto) [place] % (Auto) Eos % (Auto) Baso % (Auto) Lymph # (Auto) [place] # (Auto) Eos # (Auto) Baso # (Auto) Abs Immat Gran (auto) Absolute Neuts (auto) Absolute Nucleated RBC Nucleated RBC % (auto) PT INR APTT VBG pH VBG pCO2 VBG pO2 VBG HCO3 VBG O2 Saturation VBG Base Excess Anion Gap Estim Creat Clear Calc Estimated GFR POC Glucose 210 H 378 H* Random Glucose Estimat Average Glucose Hemoglobin A1c % Calcium Magnesium Iron TIBC % Saturation Unsat Iron Binding Total Bilirubin AST ALT Alkaline Phosphatase Total Protein Albumin Beta-Hydroxybutyrate Beta HCG, Quant Hold Yellow Top Urine Color Urine Appearance Urine pH Ur Specific [place] Urine Protein Urine Glucose (UA) Urine Ketones Urine Blood Urine Nitrite Ur Leukocyte Esterase Urine RBC Urine WBC Ur Squamous Epith Cells Urine Bacteria Hyaline Casts Urine Opiates Screen Urine Fentanyl Screen Ur Barbiturates Screen Ur Phencyclidine Scrn Ur Amphetamines Screen U Benzodiazepines Scrn Urine Cocaine Screen U Marijuana (THC) Screen Influenza Type A (PCR) Influenza Type B (PCR) RSV RNA Qual (PCR) SARS-CoV-2 RNA (RT-PCR) Assessment and Plan (1) Diabetic ketoacidosis associated with type 1 diabetes mellitus: Status: Acute Plan This is a 27-year-old female with no pertinent past medical history and not on prescription medications who presents to the emergency department for evaluation of polyuria and polydipsia. Uncontrolled new onset diabetes mellitus with hyperglycemia Mild DKA upon admission which resolved. s/p IV crystalloid resuscitation. Diabetes Education while inpatient. RN teaching if insulin injection ss, ada diet and lantus Microcytic anemia normal iron studies follow up o/p with pcp if further workup warranted Pseudo hyponatremia due to hyperglycemia resolved Hypokalemia repleted and resolved DVT prophylaxis: early ambulation attending Dr. Valle continue hospital stay for blood glucose monitoring, optimization of antihyperglycemics (as above), which is not possible in a lesser acute setting. Quality Stroke Does the patient have a stroke diagnosis?: No VTE Prior VTE?: No VTE Risk Level:: Medical - low VTE Device Contraindication: Treatment Not Indicated VTE Drug Contraindication: Treatment Not Indicated
--- NOTE | 2023-03-04 14:46 | MHC.CLN ---
RE: CONSULT REVIEWED FOODS THAT AFFECT BS WITH PT DISCUSSED PORTION SIZES, MODERATION AND HEALTHY EATING PATTERNS FOR PEOPLE WITH DIABETES PT UNDERSTANDING: GOOD; EXPECTED COMPLIANCE: GOOD PT ABLE TO VERBALLY EXPLAIN BY GIVING EXAMPLES OF FOOD THAT INCREASE BLOOD SUGARS I.E. FRUIT JUICE RECOMMENDED REFERRAL TO OUT PT RD FOR FUTURE FOLLOW UP AND DIET RE-ENFORCEMENT SEE TEACHING RECORD
--- NOTE | 2023-03-04 16:03 | PM.DS ---
DS: Providers Provider Date of admission: 03/03/23 20:19 Primary care physician: Indy Westbrook MD DS: Diagnosis Discharge Diagnosis (1) Diabetic ketoacidosis associated with type 1 diabetes mellitus: Status: Acute DS: Summary Hospital Course Hospital Course: history and physical as per admitting provider. This is a 27-year-old female with no pertinent past medical history and not on prescription medications who presents to the emergency department for evaluation of polyuria and polydipsia. Patient states her symptoms started 1 week prior to presentation. No history of similar symptoms in the past. Does have a family history of diabetes mellitus, unknown type 1 or type 2. Patient states she has no pertinent past medical history and only takes [id number] allergy medications p.r.n.. On the day of presentation, patient also started having nausea and nonbloody emesis. Denies tobacco use but admits occasional alcohol use. No fever, chills, chest discomfort, palpitations, shortness of breath, abdominal pain, changes in bowel habits. In the emergency department, blood glucose found to be significantly elevated. Patient treated for acute diabetic ketoacidosis secondary to new onset diabetes mellitus likely type 1. Patient did not require ICU level of care. Highest blood sugar initially was greater than 600, noted mild hypokalemia, no hyponatremia. Patient was treated with scheduled mealtime insulin and started on Lantus. She was seen and evaluated by the drain cleaner plumber in educated on the importance of food management for blood sugar control. She will have a glucose meter and all supplies sent to the pharmacy. She had education regarding medication administration by director of staff development. Patient should follow up outpatient with an bombsight specialist and also her primary care provider. Physical Exam Vital Signs: Vital Signs: Last Vital Signs Temp 96.8 F 03/04/23 15:24 Pulse 84 03/04/23 15:24 Resp 12 03/04/23 15:24 BP 124/88 03/04/23 15:24 Pulse Ox 100 03/04/23 15:24 O2 Del Method Room Air 03/04/23 15:24 BMI result Body Mass Index 34.2 DS: Data Data Completed and Pending Labs on day of discharge: Laboratory Results - last 24 hr 03/03/23 03/03/23 03/03/23 18:26 19:51 19:52 WBC 9.2 RBC 5.09 Hgb 11.6 L Hct 38.1 MCV 74.9 L MCH 22.8 L MCHC 30.4 L RDW 13.9 Plt Count 274 MPV 12.7 H Immature Gran % (Auto) 0.2 Neut % (Auto) 66.0 Lymph % (Auto) 22.7 [place] % (Auto) 9.4 Eos % (Auto) 1.0 Baso % (Auto) 0.7 Lymph # (Auto) 2.1 [place] # (Auto) 0.9 Eos # (Auto) 0.1 Baso # (Auto) 0.1 Abs Immat Gran (auto) 0.02 Absolute Neuts (auto) 6.1 Absolute Nucleated RBC 0.000 Nucleated RBC % (auto) 0.0 PT 11.1 INR 0.9 APTT 30.1 VBG pH VBG pCO2 VBG pO2 VBG HCO3 VBG O2 Saturation VBG Base Excess Sodium 128 L Potassium 3.8 Chloride 96 Carbon Dioxide 18 L Anion Gap 18 BUN 15 Creatinine 1.22 Estim Creat Clear Calc 72.8 Estimated GFR 54 POC Glucose > 600 H* > 600 H* Random Glucose 735 H* Estimat Average Glucose Hemoglobin A1c % Calcium 9.4 Magnesium 1.9 Iron TIBC % Saturation Unsat Iron Binding Total Bilirubin 0.5 AST 11 ALT 14 Alkaline Phosphatase 63 Troponin I High Sens < 2.7 Total Protein 8.5 H Albumin 4.4 Beta-Hydroxybutyrate 4.44 H Beta HCG, Quant < 2 Hold Yellow Top Urine Color Urine Appearance Urine pH Ur Specific [place] Urine Protein Urine Glucose (UA) Urine Ketones Urine Blood Urine Nitrite Ur Leukocyte Esterase Urine RBC Urine WBC Ur Squamous Epith Cells Urine Bacteria Hyaline Casts Urine Opiates Screen Urine Fentanyl Screen Ur Barbiturates Screen Ur Phencyclidine Scrn Ur Amphetamines Screen U Benzodiazepines Scrn Urine Cocaine Screen U Marijuana (THC) Screen Influenza Type A (PCR) NEGATIVE Influenza Type B (PCR) NEGATIVE RSV RNA Qual (PCR) NEGATIVE SARS-CoV-2 RNA (RT-PCR) NEGATIVE 03/03/23 03/03/23 03/03/23 20:11 20:36 20:40 WBC RBC Hgb Hct MCV MCH MCHC RDW Plt Count MPV Immature Gran % (Auto) Neut % (Auto) Lymph % (Auto) [place] % (Auto) Eos % (Auto) Baso % (Auto) Lymph # (Auto) [place] # (Auto) Eos # (Auto) Baso # (Auto) Abs Immat Gran (auto) Absolute Neuts (auto) Absolute Nucleated RBC Nucleated RBC % (auto) PT INR APTT VBG pH VBG pCO2 VBG pO2 VBG HCO3 VBG O2 Saturation VBG Base Excess Sodium Potassium Chloride Carbon Dioxide Anion Gap BUN Creatinine Estim Creat Clear Calc Estimated GFR POC Glucose > 600 H* 599 H* Random Glucose Estimat Average Glucose Hemoglobin A1c % Calcium Magnesium Iron TIBC % Saturation Unsat Iron Binding Total Bilirubin AST ALT Alkaline Phosphatase Troponin I High Sens Total Protein Albumin Beta-Hydroxybutyrate Beta HCG, Quant Hold Yellow Top Urine Color Yellow Urine Appearance Clear Urine pH 5.0 Ur Specific [place] >= 1.030 H Urine Protein Negative Urine Glucose (UA) >=1000 H Urine Ketones 80 Urine Blood Negative Urine Nitrite Negative Ur Leukocyte Esterase Negative Urine RBC 0-2 Urine WBC 0-5 Ur Squamous Epith Cells 0-2 Urine Bacteria None Seen Hyaline Casts 3-5 Urine Opiates Screen Not Detected Urine Fentanyl Screen Not Detected Ur Barbiturates Screen Not Detected Ur Phencyclidine Scrn Not Detected Ur Amphetamines Screen Not Detected U Benzodiazepines Scrn Not Detected Urine Cocaine Screen Not Detected U Marijuana (THC) Screen Not Detected Influenza Type A (PCR) Influenza Type B (PCR) RSV RNA Qual (PCR) SARS-CoV-2 RNA (RT-PCR) 03/03/23 03/03/23 03/03/23 20:45 20:51 21:20 WBC RBC Hgb Hct MCV MCH MCHC RDW Plt Count MPV Immature Gran % (Auto) Neut % (Auto) Lymph % (Auto) [place] % (Auto) Eos % (Auto) Baso % (Auto) Lymph # (Auto) [place] # (Auto) Eos # (Auto) Baso # (Auto) Abs Immat Gran (auto) Absolute Neuts (auto) Absolute Nucleated RBC Nucleated RBC % (auto) PT INR APTT VBG pH 7.31 L VBG pCO2 30 VBG pO2 50 VBG HCO3 15 L VBG O2 Saturation 77.0 VBG Base Excess -9.1 Sodium Potassium Chloride Carbon Dioxide Anion Gap BUN Creatinine Estim Creat Clear Calc Estimated GFR POC Glucose 431 H* Random Glucose Estimat Average Glucose Hemoglobin A1c % Calcium Magnesium Iron 53 TIBC 327 % Saturation 16 Unsat Iron Binding 274 Total Bilirubin AST ALT Alkaline Phosphatase Troponin I High Sens Total Protein Albumin Beta-Hydroxybutyrate Beta HCG, Quant Hold Yellow Top Urine Color Urine Appearance Urine pH Ur Specific [place] Urine Protein Urine Glucose (UA) Urine Ketones Urine Blood Urine Nitrite Ur Leukocyte Esterase Urine RBC Urine WBC Ur Squamous Epith Cells Urine Bacteria Hyaline Casts Urine Opiates Screen Urine Fentanyl Screen Ur Barbiturates Screen Ur Phencyclidine Scrn Ur Amphetamines Screen U Benzodiazepines Scrn Urine Cocaine Screen U Marijuana (THC) Screen Influenza Type A (PCR) Influenza Type B (PCR) RSV RNA Qual (PCR) SARS-CoV-2 RNA (RT-PCR) 03/03/23 03/04/23 03/04/23 21:54 00:04 07:23 WBC 7.2 RBC 4.87 Hgb 11.3 L Hct 37.0 MCV 76.0 L MCH 23.2 L MCHC 30.5 L RDW 14.1 Plt Count 263 MPV 13.0 H Immature Gran % (Auto) 0.3 Neut % (Auto) 52.5 Lymph % (Auto) 35.0 [place] % (Auto) 8.8 Eos % (Auto) 2.6 Baso % (Auto) 0.8 Lymph # (Auto) 2.5 [place] # (Auto) 0.6 Eos # (Auto) 0.2 Baso # (Auto) 0.1 Abs Immat Gran (auto) 0.02 Absolute Neuts (auto) 3.8 Absolute Nucleated RBC 0.000 Nucleated RBC % (auto) 0.0 PT INR APTT VBG pH VBG pCO2 VBG pO2 VBG HCO3 VBG O2 Saturation VBG Base Excess Sodium 136 137 Potassium 3.1 L 3.8 D Chloride 108 109 H Carbon Dioxide 19 L 18 L Anion Gap 12 14 BUN 12 9 Creatinine 0.83 0.76 Estim Creat Clear Calc 107.0 118.7 Estimated GFR > 60 > 60 POC Glucose 351 H* Random Glucose 181 H 231 H Estimat Average Glucose 272 Hemoglobin A1c % 11.1 H Calcium 8.5 D 8.2 L Magnesium Iron TIBC % Saturation Unsat Iron Binding Total Bilirubin AST ALT Alkaline Phosphatase Troponin I High Sens Total Protein Albumin Beta-Hydroxybutyrate Beta HCG, Quant Hold Yellow Top See Note Urine Color Urine Appearance Urine pH Ur Specific [place] Urine Protein Urine Glucose (UA) Urine Ketones Urine Blood Urine Nitrite Ur Leukocyte Esterase Urine RBC Urine WBC Ur Squamous Epith Cells Urine Bacteria Hyaline Casts Urine Opiates Screen Urine Fentanyl Screen Ur Barbiturates Screen Ur Phencyclidine Scrn Ur Amphetamines Screen U Benzodiazepines Scrn Urine Cocaine Screen U Marijuana (THC) Screen Influenza Type A (PCR) Influenza Type B (PCR) RSV RNA Qual (PCR) SARS-CoV-2 RNA (RT-PCR) 03/04/23 03/04/23 07:31 10:55 WBC RBC Hgb Hct MCV MCH MCHC RDW Plt Count MPV Immature Gran % (Auto) Neut % (Auto) Lymph % (Auto) [place] % (Auto) Eos % (Auto) Baso % (Auto) Lymph # (Auto) [place] # (Auto) Eos # (Auto) Baso # (Auto) Abs Immat Gran (auto) Absolute Neuts (auto) Absolute Nucleated RBC Nucleated RBC % (auto) PT INR APTT VBG pH VBG pCO2 VBG pO2 VBG HCO3 VBG O2 Saturation VBG Base Excess Sodium Potassium Chloride Carbon Dioxide Anion Gap BUN Creatinine Estim Creat Clear Calc Estimated GFR POC Glucose 210 H 378 H* Random Glucose Estimat Average Glucose Hemoglobin A1c % Calcium Magnesium Iron TIBC % Saturation Unsat Iron Binding Total Bilirubin AST ALT Alkaline Phosphatase Troponin I High Sens Total Protein Albumin Beta-Hydroxybutyrate Beta HCG, Quant Hold Yellow Top Urine Color Urine Appearance Urine pH Ur Specific [place] Urine Protein Urine Glucose (UA) Urine Ketones Urine Blood Urine Nitrite Ur Leukocyte Esterase Urine RBC Urine WBC Ur Squamous Epith Cells Urine Bacteria Hyaline Casts Urine Opiates Screen Urine Fentanyl Screen Ur Barbiturates Screen Ur Phencyclidine Scrn Ur Amphetamines Screen U Benzodiazepines Scrn Urine Cocaine Screen U Marijuana (THC) Screen Influenza Type A (PCR) Influenza Type B (PCR) RSV RNA Qual (PCR) SARS-CoV-2 RNA (RT-PCR) Discharge Plan Discharge Patient Disposition: Home, Self-Care Discharge Diagnosis: Diabetic ketoacidosis New onset diabetes mellitus likely type 1 Referrals: Indy Westbrook MD [Primary Care Provider] - 03/18/23 10:45 am (You have a follow up appointment scheduled. If you need to reschedule call the office.) Cornelio May MD [Physician] - 1 Week Discharge Medications: New (DME) FreeStyle Lite Strips Strip Qty: 100 0RF Rx Instructions: Test four times a day or as directed. (DME) blood-glucose meter [FreeStyle Lite Meter] Kit Qty: 1 0RF Rx Instructions: As Directed (DME) pen needle, diabetic 32 gauge x 1/4 needle Qty: 100 0RF Rx Instructions: Use four times a day or as directed. (DME) lancets [FreeStyle Lancets] 28 gauge misc Qty: 100 0RF Rx Instructions: Test four times a day or as directed. alcohol swabs Pads, Medicated 1 pad TOPICAL QIDACHS Qty: 100 0RF Rx Instructions: Use four times a day or as directed. insulin glargine [Lantus Solostar U-100 Insulin] 100 unit/mL (3 mL) Insulin Pen 10 unit SUBCUT QPM Qty: 15 0RF insulin lispro [Humalog KwikPen Insulin] 100 unit/mL insulin pen 0 sliding scale dose SUBCUT QIDACHS Qty: 15 0RF Rx Instructions: Blood Sugar: <150 - 0 units 151-200 - 2 units 201-250 - 4 units 251-300 - 6 units 301-350 - 8 units >350 - 10 units Diet: Advance to usual diet Activity on Discharge: As tolerated Stand Alone Forms: Patient Portal Discharge page Care Plan Goals: You may consider a continuous glucose monitor that you can wear to continuously monitor your blood sugar Check blood sugars before meals and at bedtime and keep a log to share with your primary care provider or bombsight specialist Follow a high-protein, low carbohydrate diet and avoid excess sugar intake Health Concerns: Diabetic ketoacidosis New onset diabetes mellitus likely type 1 Plan of Treatment: Follow-up with primary care provider as needed Follow-up with bombsight specialist for further recommendations regarding new onset diabetes mellitus Assessment: see discharge summary Patient Instructions: Type 2 Diabetes in Adults: New Diagnosis (GEN), How to Check your Blood Sugar (GEN)
[2023-03-04 16:23] LABS: Glucose, Whole Blood 182 mg/dL (60-115)
[2023-03-04 20:43] LABS: Glucose, Whole Blood 226 mg/dL (60-115)
[2023-03-04] MEDS: Insulin Glargine,Hum.rec.anlog 100 UNIT/ML 10 ML VIAL 10 UNIT SUBCUT (22:04)
[2023-03-05 03:46] VITALS: BP 134/68; PULSE 74; RESP 15; TEMP 36.5; O2SAT 98
[2023-03-05 07:53] LABS: Glucose, Whole Blood 210 mg/dL (60-115)
[2023-03-05 08:00] VITALS: BP 131/68; PULSE 80; RESP 18; TEMP 36.3
[2023-03-05] MEDS: Insulin Lispro 100 UNIT/ML 3 ML VIAL SUBCUT ×2 (08:07→12:40)
[2023-03-05] MEDS: 0.9 % Sodium Chloride Flush 3 ML SYRINGE IVFLUSH (08:07)
[2023-03-05 11:01] LABS: Glucose, Whole Blood 328 mg/dL (60-115)
[2023-03-05 11:16] VITALS: BP 131/78; PULSE 87; RESP 16; TEMP 36.6; O2SAT 98
--- NOTE | 2023-03-05 13:07 | PM.DS ---
DS: Providers Provider Date of Service: 03/05/23 Date of admission: 03/03/23 20:19 Date of discharge: 03/05/23 Primary care physician: Indy Westbrook MD Attending physician on admission: Christiano Meredith Attending physician on discharge: Minnie Liang Discharging clinician: Kevin Valle DS: Diagnosis Discharge Diagnosis (1) Diabetic ketoacidosis associated with type 1 diabetes mellitus: Status: Acute DS: Summary Hospital Course Hospital Course: HPI by Dr. Meredith 03/03: This is a 27-year-old female with no pertinent past medical history and not on prescription medications who presents to the emergency department for evaluation of polyuria and polydipsia. Patient states her symptoms started 1 week prior to presentation. No history of similar symptoms in the past. Does have a family history of diabetes mellitus, unknown type 1 or type 2. Patient states she has no pertinent past medical history and only takes [id number] allergy medications p.r.n.. On the day of presentation, patient also started having nausea and nonbloody emesis. Denies tobacco use but admits occasional alcohol use. No fever, chills, chest discomfort, palpitations, shortness of breath, abdominal pain, changes in bowel habits. In the emergency department, blood glucose found to be significantly elevated. Hospital course: Patient treated for acute diabetic ketoacidosis secondary to new onset diabetes mellitus likely type 1. Patient did not require ICU level of care. Highest blood sugar initially was greater than 600, noted mild hypokalemia, no hyponatremia. Patient was treated with scheduled mealtime insulin and started on Lantus. She was seen and evaluated by the juvenile counselor in educated on the importance of food management for blood sugar control. She will have a glucose meter and all supplies sent to the pharmacy. She had education regarding medication administration by community health nurse staff. Patient should follow up outpatient with an utility pipe layer and also her primary care provider. Status at Discharge Functional status at discharge: independent ambulation Overall status at discharge: patient is back to baseline Time Attestation Discharge coordination time: Greater than 30 minutes Quality: Safe Use of Opioids Does Pt have an Active Cancer Diagnosis on the Problem List?: No Quality: Stroke Does the patient have a stroke diagnosis?: No Physical Exam Vital Signs: Vital Signs: Last Vital Signs Temp 97.8 F 03/05/23 11:16 Pulse 87 03/05/23 11:16 Resp 16 03/05/23 11:16 BP 131/78 03/05/23 11:16 Pulse Ox 98 03/05/23 11:16 O2 Del Method Room Air 03/05/23 11:16 BMI result Body Mass Index 34.2 Constitutional - Awake and Alert, No apparent distress Eyes - PERRLA, EOMI Cardiovascular - S1S2, RRR, No edema Respiratory - Normal lung expansion, Normal respiratory effort, No respiratory distress, CTA bilaterally Gastrointestinal - NT / ND; +BS; No rebound or guarding Extremities - no calf tenderness bilaterally, no swelling Skin - Warm/Dry Neurological - Alert & oriented x3 Psychological - Appropriate affect DS: Data Data Completed and Pending Labs on day of discharge: Laboratory Results - last 24 hr 03/04/23 03/04/23 03/05/23 16:16 20:35 07:27 POC Glucose 182 H 226 H 210 H 03/05/23 10:49 POC Glucose 328 H Discharge Plan Discharge Anticipated Discharge Date/Time: 03/05/23 13:07 Patient Disposition: Home, Self-Care Discharge Diagnosis: Diabetic ketoacidosis New onset diabetes mellitus likely type 1 Referrals: Indy Westbrook MD [Primary Care Provider] - 03/18/23 10:45 am (You have a follow up appointment scheduled. If you need to reschedule call the office.) Cornelio May MD [Physician] - 1 Week Discharge Medications: New (DME) FreeStyle Lite Strips Strip Qty: 100 0RF Rx Instructions: Test four times a day or as directed. (DME) blood-glucose meter [FreeStyle Lite Meter] Kit Qty: 1 0RF Rx Instructions: As Directed alcohol swabs Pads, Medicated 1 pad TOPICAL QIDACHS Qty: 100 0RF Rx Instructions: Use four times a day or as directed. insulin lispro [Humalog KwikPen Insulin] 100 unit/mL insulin pen 0 sliding scale dose SUBCUT QIDACHS Qty: 15 0RF Rx Instructions: Blood Sugar: <150 - 0 units 151-200 - 2 units 201-250 - 4 units 251-300 - 6 units 301-350 - 8 units >350 - 10 units insulin glargine [Lantus Solostar U-100 Insulin] 100 unit/mL (3 mL) Insulin Pen 10 unit SUBCUT QPM Qty: 15 0RF (DME) pen needle, diabetic 32 gauge x 1/4 needle Qty: 100 0RF Rx Instructions: Use four times a day or as directed. (DME) lancets [FreeStyle Lancets] 28 gauge misc Qty: 100 0RF Rx Instructions: Test four times a day or as directed. Discharge Orders: Discharge Order (Routine); Ordered 03/05/23 Ordered By: Minnie Liang Diet: Diabetic diet Activity on Discharge: As tolerated Stand Alone Forms: Patient Portal Discharge page Care Plan Goals: You may consider a continuous glucose monitor that you can wear to continuously monitor your blood sugar Check blood sugars before meals and at bedtime and keep a log to share with your primary care provider or utility pipe layer Follow a high-protein, low carbohydrate diet and avoid excess sugar intake Health Concerns: Diabetic ketoacidosis New onset diabetes mellitus likely type 1 Plan of Treatment: Follow-up with primary care provider as needed Follow-up with utility pipe layer for further recommendations regarding new onset diabetes mellitus. Ask utility pipe layer about possibly getting a continuous glucose monitor, such as a dexcom or freestyle jonah Assessment: see discharge summary Patient Instructions: Diabetes and Nutrition (DC), How to Check your Blood Sugar (GEN), Diabetes Type 1: Management (DC) Discharge Date/Time: 03/05/23 14:38
--- NOTE | 2023-03-05 13:36 | MHC.CM.PN ---
Pt is medically cleared for D/C home self-care, her cousin will transport her home. Pt states she has a follow up appointment on 03/18 with her PCP.
== END 2023-03-05 14:38 | disposition home or self-care (01) | DRG 420 ==
LOC: HO.ED 19:45 → HO.EDOVER 20:38 → HO.IMC 22:14
PROVIDERS: Nurse Practitioner Acute Care; Physician Assistant Medical; Admitting Provider Student in an Organized Health Care Education/Training Program; Emergency Provider Internal Medicine; PCP Internal Medicine; Visit Provider Physician Assistant
DX: E10.10 Type 1 diabetes mellitus with ketoacidosis without coma (principal); D50.9 Iron deficiency anemia, unspecified; E87.6 Hypokalemia; Z20.822 Contact with and (suspected) exposure to COVID-19
CPT/HCPCS: 0241U; 36415; 71046; 80048; 80053; 80307; 81001; 82010; 82803; 82947; 83036; 83540; 83735; 84484; 84702; 85025; 85610; 85730; 93005; 99222; 99285

== ENCOUNTER → 2023-03-03 19:44 | Outpatient (BNV) | payer OTHER, SELFPAY | PROVIDERS: Emergency Provider Internal Medicine; PCP Internal Medicine; Visit Provider Student in an Organized Health Care Education/Training Program | DX: E10.10 Type 1 diabetes mellitus with ketoacidosis without coma (principal) | CPT/HCPCS: 99222; 99232; 99239 ==

== ENCOUNTER 2023-03-20 08:59 | Outpatient (REF) | payer OTHER, SELFPAY ==
[2023-03-20 12:01] LABS: Insulin 29 uU/mL (2-29)
[2023-03-23 06:03] LABS: C Peptide 1.04 ng/mL (0.80-3.85)
[2023-03-25 18:35] LABS: Glutamic acid decarboxylase Ab >250 IU/mL (<5)
[2023-03-28 00:18] LABS: Insulin Auto Antibody <0.4 U/mL (<0.4)
[2023-03-28 17:09] LABS: Insulinoma associated 2 aatb >350.0 U/mL (<5.4)
== END 2023-03-20 09:00 | disposition home or self-care (01) ==
LOC: HO.HHCL 08:59
PROVIDERS: Visit Provider Internal Medicine
DX: E10.65 Type 1 diabetes mellitus with hyperglycemia (principal)
CPT/HCPCS: 36415; 83525; 84681; 86337; 86341

== ENCOUNTER 2023-04-04 08:37 | Outpatient (AMB) | payer OTHER, SELFPAY ==
--- NOTE | 2023-04-04 08:42 | MHC.OFFVIS ---
Intake Vital Signs 04/04/23 08:45 Height 5 ft 3 in Weight 188 lb BMI 33.3 BP 129/60 Blood Pressure Location Lt brachial Position Sitting Pulse 94 Intake Visit Reasons: Iron Deficiency.anemia, chronic blood loss Intake Note: Patient new consult for Anemia and chronic blood loss. Patient denies any GI issues, she is having heavy menstrual period and blood loss. Vice President Client Services Required: No Accompanied by: Self / Same As Patient Allergies No Known Allergies Allergy (Verified 04/04/23 08:42) HPI Iron Deficiency.anemia, chronic blood loss HPI Details 27-year-old female with past medical history of diabetes, chronic anemia is here today for initial consultation. Patient was sent by PCP for evaluation of anemia. Patient was taking iron supplements and stopped in November. Her H&H in October was 12.2 and 39.6 and in February her H&H was 11.3 and 37. Patient reports that she has no GI symptoms. Moving her bowels without any issues. Patient denies any melena, hematochezia, unintentional weight loss or ribbon like stools. Patient denies any dyspepsia, dysphagia or odynophagia. Stool studies: Hemoccult negative. Patient admits to have heavy periods. Patient reports that her 1st couple days I usually very painful and very heavy periods. Patient has not seen chair upholsterer yet. Patient currently is not taking iron. Has not seen dust box tender. [facility] Surgical History (Updated 04/04/23 @ 08:43 by Sharlene Jean) Hx of bilateral breast reduction surgery Family History (Updated 04/04/23 @ 08:44 by Sharlene Jean) Mother Glaucoma Arthritis Anemia Social History Household Members: Family Housing: Apartment Do you presently have visiting nurse or other home services: No Patient Tobacco Use Status: Never used Tobacco service: No Review of Systems Const Denies weight gain and Denies weight loss ENT Reports no additional complaints, Denies dysphagia and Denies odynophagia Card Reports no additional complaints Resp Reports no additional complaints GI Denies abdominal pain, Denies belching, Denies melena, Denies bloating, Denies change in bowel habits, Reports constipation (Occasional), Denies dysphagia, Denies excessive flatus, Denies dyspepsia, Denies heartburn, Denies diarrhea, Denies loose stools, Denies nausea, Denies odynophagia and Denies vomiting Reports abnormal vaginal bleeding Musc Reports no additional complaints Neuro Reports no additional complaints Psych Reports no additional complaints Endo Reports no additional complaints Physical Exam Vital Signs: Last Vital Signs Pulse 94 04/04/23 08:45 BP 129/60 04/04/23 08:45 BMI result Body Mass Index 33.3 Const General: healthy appearing, no acute distress and well developed Nutritional Appearance: obese Orientation/consciousness: patient oriented x3 HEENT Head: Yes normal to inspection, Yes normocephalic and Yes atraumatic Face and sinus: Yes normal facial exam Mouth: Normal oral and palatal mucosa present Throat: Yes posterior oropharynx normal, Yes tonsils normal and Yes uvula midline Eyes General: appearance normal, both eyes and all related structures Neck Neck: Yes normal visual inspection, Yes full ROM and Yes trachea midline Thyroid: Thyroid normal Resp Effort & Inspection: normal respiratory effort, able to speak in complete sentences, no tracheal deviation and symmetric chest movement Auscultation: clear to auscultation bilaterally Cardio Rate: regular rate GI Inspection: Yes normal to inspection, No distended and Yes obesity Palpation (GI): Soft to palpation, not firm, nontender and No hepatosplenomegaly present Auscultation: normal bowel sounds General: Yes no CVA tenderness Back/Spine/Pelvis Back: no CVA tenderness Skin General skin exam: elasticity normal, turgor normal and dry skin Neuro General: patient oriented x3 Psych Appearance: grossly normal Mental Status: mental status grossly normal Affect: normal affect Results Reviewed Results Reviewed: Laboratory Tests 10/25/22 03/04/23 15:15 07:23 Hgb 12.2 11.3 L Hct 39.6 37.0 MCV 78.1 L 76.0 L Assessment & Plan Assessment & Plan (1) Iron deficiency anemia: Code(s): D50.9 - Iron deficiency anemia, unspecified Qualifiers: Iron deficiency anemia type: unspecified iron deficiency Qualified Code(s): D50.9 - Iron deficiency anemia, unspecified (2) Constipation: Code(s): K59.00 - Constipation, unspecified Qualifiers: Constipation type: drug induced constipation Qualified Code(s): K59.03 - Drug induced constipation Plan Will repeat CBCs, check iron profile, liver panel and ferritin. Patient will call chair upholsterer. Patient will be given script for MiraLax in case she start iron supplements again. Patient denies any melena, hematochezia, unintentional weight loss or ribbon like stools. Patient will follow-up in the office on as needed basis. Patient is agreeable to this plan and verbalizes understanding of instructions. She was given the opportunity to ask questions and all questions answered. Thank you for allowing me to participate in her care Orders: Orders Complete Blood Count no Diff 04/04/23 D50.9 - Iron deficiency anemia, unspecified Ferritin 04/04/23 D50.9 - Iron deficiency anemia, unspecified IRON PROFILE 04/04/23 D64.9 - Anemia, unspecified Liver Panel 04/04/23 D50.9 - Iron deficiency anemia, unspecified Medications: New polyethylene glycol 3350 (Miralax) 17 grams PO DAILY 510 grams 2RF Coding Level of Care Code New Pt Level 4 (75440) Diagnoses Iron deficiency anemia, unspecified iron deficiency anemia type D50.9 Iron deficiency anemia type: unspecified iron deficiency Drug-induced constipation K59.03 Constipation type: drug induced constipation Time Spent (min) 45 Comment 30 minutes spent with patient and additional 15 minutes spent reviewing her records
[2023-04-04 08:45] VITALS: BP 129/60; PULSE 94; BMI 33.3
== END 2023-04-04 09:07 | disposition home or self-care (01) ==
PROVIDERS: PCP Internal Medicine; Referring Provider Internal Medicine; Visit Provider Nurse Practitioner Family
DX: D50.9 Iron deficiency anemia, unspecified (principal); K59.03 Drug induced constipation
CPT/HCPCS: 99204

== ENCOUNTER 2023-04-04 08:37 | Outpatient (REF) | payer OTHER, SELFPAY ==
[2023-04-04 10:20] LABS: Hematocrit 37.6 % (37.0-47.0); Hemoglobin 11.2 g/dl (12.0-16.0); Mean Corpuscular HGB Conc 29.8 g/dl (31.0-35.0); Mean Corpuscular Hemoglobin 21.8 pg (27.0-33.0); Mean Corpuscular Volume 73.3 fL (80.0-98.0); Mean Platelet Volume 11.5 fL (9.4-12.3); Platelet Count 256 X10*3/uL (160-400); Red Blood Count 5.13 X10*6/uL (4.20-5.50); Red Cell Distribution Width 15.2 % (11.0-16.0); White Blood Count 7.3 X10*3/uL (4.8-10.8)
[2023-04-04 10:48] LABS: Alanine Aminotransferase 12 U/L (0-31); Albumin Level 4.1 g/dL (3.5-5.0); Alkaline Phosphatase 46 U/L (39-117); Aspartate Amino Transferase 13 U/L (5-31); Bilirubin Direct 0.1 mg/dL (0.0-0.5); Bilirubin Total 0.3 mg/dL (0.0-1.0); Iron 17 mcg/dL (30-160); Percent Iron Saturation 5 % (15-50); Total Iron Binding Capacity 349 mcg/dL (228-428); Total Protein 7.9 g/dL (6.5-8.0); Unsaturated Iron Binding 332 ug/dL
[2023-04-04 11:16] LABS: Ferritin 4 ng/mL (10-122)
== END 2023-04-04 08:38 | disposition home or self-care (01) ==
LOC: HO.LAB 08:37
PROVIDERS: PCP Internal Medicine; Visit Provider Nurse Practitioner Family
DX: D50.9 Iron deficiency anemia, unspecified (principal); K59.03 Drug induced constipation
CPT/HCPCS: 36415; 80076; 82728; 83540; 85027

== ENCOUNTER 2024-02-02 10:26 | Outpatient (REF) | payer OTHER, SELFPAY ==
[2024-02-02 11:42] LABS: MANUAL DIFF FLAG NO
[2024-02-02 12:35] LABS: Basophils Absolute Auto 0.1 X10*3/uL (0.0-0.2); Basophils Percent Auto 0.8 % (0-2); Eosinophils Absolute Auto 0.1 X10*3/uL (0.0-0.4); Eosinophils Percent Auto 1.2 % (0-4); Hematocrit 35.4 % (37.0-47.0); Hemoglobin 10.9 g/dl (12.0-16.0); Imm Gran Abs Auto 0.02 X10*3/uL (0.00-0.03); Imm Gran Pct Auto 0.3 % (0.0-0.4); Immature Retic Fraction 22.5 % (3.0-15.9); Lymphocytes Absolute Auto 1.9 X10*3/uL (1.2-4.9); Lymphocytes Percent Auto 29.6 % (20-40); Mean Corpuscular HGB Conc 30.8 g/dl (31.0-35.0); Mean Corpuscular Hemoglobin 23.1 pg (27.0-33.0); Mean Corpuscular Volume 75.2 fL (80.0-98.0); Mean Platelet Volume 11.7 fL (9.4-12.3); Monocytes Absolute Auto 0.4 X10*3/uL (0.1-1.2); Monocytes Percent Auto 6.5 % (2-11); Neutrophils Percent Auto 61.6 % (45-73); Platelet Count 341 X10*3/uL (160-400); Red Blood Count 4.71 X10*6/uL (4.20-5.50); Red Cell Distribution Width 14.7 % (11.0-16.0); Reticulocyte Percent 1.3 % (0.5-1.8); Reticulocytes Absolute 0.063 X10*6/uL (0.026-0.095); White Blood Count 6.5 X10*3/uL (4.8-10.8)
[2024-02-02 12:44] LABS: Creatinine Urine 268.94 mg/dL; Microalbum/Creatinine Ratio Ur 7.8 ug/mg cr (<30)
[2024-02-02 12:57] LABS: Cholesterol 191 mg/dL (<200); HDL Cholesterol 57 mg/dL (>40); Iron 14 mcg/dL (30-160); LDL Cholesterol Calculated 118 mg/dL (<100); Percent Iron Saturation 4 % (15-50); Total Iron Binding Capacity 344 mcg/dL (228-428); Triglycerides 83 mg/dL (<150); Unsaturated Iron Binding 330 ug/dL
[2024-02-02 13:07] LABS: Ferritin 4 ng/mL (10-122)
[2024-02-02 13:20] LABS: Folate 15.1 ng/mL (> or = 4.0); Vitamin B12 780 pg/mL (200-900)
[2024-02-02 13:25] LABS: Reflex LDLD? No
[2024-02-03 04:09] LABS: HBc Num1 0.14 S/CO (0.00-0.79); HBsAGNum1 0.34 S/CO (0.00-0.99); Hepatitis A Antibody IgM 0.21 Index (0-0.79); Hepatitis B Core Antibody Nonreactive (Nonreactive); Hepatitis B Surface Antigen Negative (Negative); ~HepC Num1 0.09 S/CO (0.00-0.79); ~Hepatitis A Antibody IgM Nonreactive (Nonreactive); ~Hepatitis C Antibody Nonreactive (Nonreactive)
[2024-02-03 04:40] LABS: HIV AB/AG Nonreactive (Nonreactive); HIV Num 1 0.06 S/CO (0.00-0.99)
[2024-02-03 10:56] LABS: ~Hepatitis B Surface Antibody REACTIVE (Nonreactive)
[2024-02-03 11:38] LABS: Ceruloplasmin 30 mg/dL (14-48)
[2024-02-03 16:04] LABS: Transferrin 334 mg/dL (188-341)
== END 2024-02-02 10:27 | disposition home or self-care (01) ==
LOC: HO.HHCL 10:26
PROVIDERS: Visit Provider Internal Medicine
DX: E10.65 Type 1 diabetes mellitus with hyperglycemia (principal); D50.0 Iron deficiency anemia secondary to blood loss (chronic)
CPT/HCPCS: 36415; 80061; 82043; 82306; 82390; 82570; 82607; 82728; 82746; 83540; 84466; 85025; 85045; 86704; 86706; 86709; 86803; 87340; 87389

== ENCOUNTER 2024-12-28 17:56 | Outpatient (REF) | payer OTHER, SELFPAY ==
--- OUTSIDE RECORDS SUMMARY | 2024-12-28 11:45 | XMS_ITS | Encounter Summary ---
Author Organization [employer] Address [address] [facility] [address] [place] [address] Care Team Providers Care Maintenance Mechanic Helper Name Role Phone Indy Westbrook MD Primary Care Provider + Reason for Visit * Reason Comments Gynecologic Exam Encounter Details Date Type Department Care Team (Latest Contact Info) Description 12/28/2024 11:45 AM EDT Procedure Visit [facility] MED[facility]INE [address] [place], [place] [id number] Indy Westbrook MD [address] [place] [address] Acute vaginitis (Primary Dx) Social History Tobacco Use Types Packs/Day Years Used Date Smoking Tobacco: Never Smokeless Tobacco: Never Tobacco Cessation:Counseling Given: Not Answered Alcohol Use Standard Drinks/Week Comments Not Currently 0 (1 standard drink = 0.6 oz pur e alcohol) Socially Depression Answer Date Recorded Patient Health Questionnaire-9 Score 2 10/11/2024 Patient Health Questionnaire-9 Score 2 10/11/2024 Last PHQ-9: Questionnaire Data Not on file 0 10/11/2024 Housing Stability Answer Date Recorded What is your housing situation today? I have lillian smith 12/01/[address] you li ve. Do you have problems with any of the following? None of the above 12/01/2023 Food Insecurity Answer Date Recorded Within the past 12 months, y ou worried that your food would run out before you got money to buy more: Never True 04/28/2024 Within the past 12 months,th e food you bought just didn't last and you didn't have enough money to get more: Never True Transportation Answer Date Recorded In the past 12 months, has l ack of transportation kept you from medical appts, meetings, work or from getting things needed for daily living? No 12/01/2023 Utilities Answer Date Recorded In the past 12 months, has t he electric, gas, oil or water company threatened to shut off services in your home? No 12/01/2023 Depression Answer Date Recorded Patient Health Questionnaire-2 Score 1 10/11/2024 Internet Access Answer Date Recorded Internet Access Q1 Yes 12/12/2023 Internet Access Q2 Not on file 12/12/2023 Comments No Intention Date Recorded No desire to become (finding) 0 12/28/2024 Sex and Gender Information Value Date Recorded Sex Assigned at Female 02/11/2022 10:15 AM EDT Legal Sex Female 10:15 AM EDT Gender Identity Female 02/11/2022 10:15 AM EDT Sexual Orientation Choose not to disclose 2021 10:15 AM EDT documented as of this encounter Last Filed Vital Signs Vital Sign Reading Time Taken Comments Blood Pressure 126/80 12/28/2024 12:00 PM EDT Pulse 84 12/28/2024 12:00 PM EDT Temperature 36.8 C (98.2 F) 12/28/2024 12:00 PM EDT Respiratory Rate 20 12/28/2024 12:00 PM EDT Oxygen Saturation - - Inhaled Oxygen Concentration - - Weight 89.1 kg (196 lb 6.4 oz) 12/28/2024 12:00 PM EDT Height 160 cm (5' 3 ) 12/28/2024 12:00 PM EDT Body Mass Index 34.79 12/28/2024 12:00 PM EDT documented in this encounter Progress Notes * Indy Westbrook MD - 12/28/2024 11:45 AM EDT SUBJECTIVE: Minnie Ny is a 29 y.o. year old female who presents for PAP smear. Denies recent illness, injury, or hospitalization. Last PAP: N/A, first PAP today Hx abn PAP: N/A LMP: 12/08/24 Contraception: None She is in a relationship AFAB partner Concern re STD: None, wants to be checked Acute Concerns: None, she denies vaginal discharge, dyspareunia, pelvic pain or postcoital bleeding Social History Social History Narrative Not on file Problem List[1] Family History[2] Review of Systems Constitutional: Negative for chills, fatigue and fever. HENT: Negative for congestion, ear pain, nosebleeds, rhinorrhea, sinus pressure, sore throat and trouble swallowing. Eyes: Negative for pain and discharge. Respiratory: Negative for cough, chest tightness and shortness of breath. Cardiovascular: Negative for chest pain, palpitations and leg swelling. Gastrointestinal: Negative for abdominal pain, blood in stool, constipation, diarrhea and nausea. Endocrine: Negative for polydipsia and polyuria. Genitourinary: Negative for dysuria, frequency, genital sores, pelvic pain and vaginal discharge. Musculoskeletal: Negative for back pain and neck pain. Skin: Negative for rash. Allergic/Immunologic: Negative for environmental allergies. Neurological: Negative for dizziness, seizures, weakness, light-headedness and headaches. Hematological: Negative for adenopathy. Psychiatric/Behavioral: Negative for agitation, behavioral problems, self-injury and suicidal ideas. OBJECTIVE: Vitals: 12/28/24 1200 BP: 126/80 Pulse: 84 Resp: 20 Temp: 98.2 ??F (36.8 ??C) Physical Exam Exam conducted with a boiler house supervisor present (Kenisha Pepper MA). HENT: Right Ear: Tympanic membrane and ear canal normal. Left Ear: Tympanic membrane and ear canal normal. Mouth/Throat: Mouth: Mucous membranes are moist. Pharynx: No oropharyngeal exudate or posterior oropharyngeal erythema. Eyes: Pupils: Pupils are equal, round, and reactive to light. Cardiovascular: Rate and Rhythm: Regular rhythm. Pulses: Normal pulses. Heart sounds: Normal heart sounds. No murmur heard. Pulmonary: Breath sounds: Normal breath sounds. Abdominal: General: Bowel sounds are normal. Palpations: Abdomen is soft. Tenderness: There is no abdominal tenderness. Genitourinary: Vagina: Vaginal discharge (Whitish/clumpy/not foul-smelling), erythema and tenderness (Discomfort) present. Comments: Unable to perform full cervical exam and atresia speculum due to patient's discomfort. Vulvar and vaginal area where somewhat erythematous and swollen, with no ulcerations but there was visible whitish no foul-smelling clumpy vaginal discharge consistent with vaginal candidiasis Musculoskeletal: General: Normal range of motion. Cervical back: Neck supple. Skin: General: Skin is warm. Neurological: General: No focal deficit present. Mental Status: She is alert and oriented to person, place, and time. Psychiatric: Mood and Affect: Mood normal. Behavior: Behavior normal. Problem List Items Addressed This Visit Acute vaginitis - Primary Most likely Alexandra due to history of diabetes, recently uncontrolled. Discussed about tight control of diabetes. Rx Diflucan weekly x 2 doses and reschedule for Pap smear Will order STI testing and treat accordingly We discussed about use of dental dam, patient not interested on getting at this time but in the future. No other contraceptive indicated at this time, she is aware of use of condoms in case she has an AMAB partner Relevant Orders Chlamydia/N. Gonorrhoeae RNA, TMA, Urogenitial Bacterial Vaginosis Follow Up: Medications Ordered Prior to Encounter[3] [1] Patient Active Problem List Diagnosis Hand deformity, congenital Overweight Iron deficiency anemia due to chronic blood loss Seasonal allergies Vitamin D deficiency Type 1 diabetes mellitus with hyperglycemia ([facility]) Encounter for preventive health examination Acute vaginitis [2] Family History Problem Relation Name Age of Onset Glaucoma Mother [3] Current Outpatient Medications on File Prior to Visit Medication Sig Dispense Refill Alcohol Swabs (Alcohol Prep) 70 % pads USE 1 PAD TOPICALLY 4 TIMES A DAY BEFORE MEAL/BED USE FOUR TIMES A DAY OR DIRECTED. Blood Glucose Monitoring Suppl (FreeStyle Lite) w/Device kit USE DIRECTED FreeStyle lancets TEST FOUR TIMES A DAY OR DIRECTED. FREESTYLE LITE test strip TEST FOUR TIMES A DAY OR DIRECTED. glucose (Glutose) 40 % gel oral gel Take 15 g by mouth if needed for low blood sugar. 45 g 11 HumaLOG KWIKPEN 100 UNIT/ML injection FOUR TIMES A DAY before meals and at bedtime Sliding Scale: BG < 150 give 0 units, 151-200 give 2 units, 201-250 give 4 units, 251 to 300 give 6 units, 301-350 give 8 units, >350 give 10 units insulin pen needle (BD Pen Needle Micro U/F) 32G x 6 mm misc USE FOUR TIMES A DAY OR DIRECTED. 100 each 3 Lantus SoloStar 100 UNIT/ML pen Inject 20 Units under the skin in the evening. 3 mL 0 loratadine (Claritin) 10 MG tablet Take 1 tablet (10 mg) by mouth in the morning. 90 tablet 1 Sodium Fluoride (PreviDent 5000 Booster Plus) 1.1 % paste Please use pea size to brush teeth twice daily. Spit, do not rinse after brushing. 112 g 2 No current facility-administered medications on file prior to visit. documented in this encounter Miscellaneous Notes * Assessment & Plan Note - Indy Westbrook MD - 12/28/2024 4:00 PM EDT Associated Problem(s): Acute vaginitis Most likely Alexandra due to history of diabetes, recently uncontrolled. Discussed about tight control of diabetes. Rx Diflucan weekly x 2 doses and reschedule for Pap smear Will order STI testing and treat accordingly We discussed about use of dental dam, patient not interested on getting at this time but in the future. No other contraceptive indicated at this time, she is aware of use of condoms in case she has an AMAB partner documented in this encounter Plan of Treatment Upcoming Encounters Date Type Department Care Team (Late st Contact Info) Description 03/08/2025 11:45 AM EST Procedure Visit [facility] MEDICINE [address] [place] [id number] Indy Westbrook MD [address] [place] [address] Scheduled Orders Name Type Priority Associated Diagnoses Orde r Schedule Chlamydia/N. Gonorrhoeae RNA, TMA, Urogenitial Microbiology Routine Acute vaginitis Ordered: 12/28/2024 Bacterial Vaginosis Microbiology Routine Acute vaginitis Expected: 12/28/2024 (Approximate), Expires: 12/28/2025 documented as of this encounter Visit Diagnoses Diagnosis Acute vaginitis- Primary Unspecified vaginitis and vulvovaginitis documented in this encounter Additional Health Concerns Assessment Noted Time PHQ-9 Depression Total Score: 2 10/12/19 2:45 PM EDT documented as of this encounter Care Teams Maintenance Mechanic Helper Relationship Specialty Start Date End Date Indy Westbrook MD [address] [place] [id number] PCP - General Family Medicine 04/02/19 documented as of this encounter
--- OUTSIDE RECORDS SUMMARY | 2024-12-28 19:16 | XMS_ITS | Encounter Summary ---
Author Organization [employer] Address [address] [facility] [address] [place] [address] Care Team Providers Care Barrel Line Operator Name Role Phone Indy Westbrook MD Primary Care Provider + Encounter Details Date Type Department Care Team (Latest Contact Info) Description 12/28/2024 Travel Social History Tobacco Use Types Packs/Day Years Used Date Smoking Tobacco: Never Smokeless Tobacco: Never Alcohol Use Standard Drinks/Week Comments Not Currently [...] Q2 Not on file 12/12/2023 Comments No Sex and Gender Information Value Date Recorded Sex Assigned at Female 02/11/2022 10:15 AM EDT Legal Sex Female 10:15 AM EDT Gender Identity Female 02/11/2022 10:15 AM EDT Sexual Orientation Choose not to disclose 2021 10:15 AM EDT documented as of this encounter Plan of Treatment Upcoming Encounters Date Type Department Care Team (Late st Contact Info) Description 03/08/2025 11:45 AM EST Procedure Visit [facility] [address] [place] [address] Indy Westbrook MD [address] [place] [address] documented as of this encounter Visit Diagnoses Not on filedocumented in this encounter Additional Health Concerns Assessment Noted Time PHQ-9 Depression Total Score: 2 10/12/19 25 2:45 PM EDT documented as of this encounter Care Teams Barrel Line Operator Relationship Specialty Start Date End Date Indy Westbrook MD [address] [place] [id number] PCP - General Family Medicine 04/02/19 documented as of this encounter
--- OUTSIDE RECORDS SUMMARY | 2024-12-28 19:16 | XMS_ITS | Clinical Summary ---
Author Organization [employer] Address [address] [place] [address] [address] [place] [address] Care Team Providers Care Human Services Program Specialist Name Role Phone Indy Westbrook MD Primary Care Provider + Allergies No known active allergies Medications Blood Glucose Monitoring Suppl (FreeStyle Lite) w/Device kit USE DIRECTED 3 Active Alcohol Swabs (Alcohol Prep) 70 % pads USE 1 PAD TOPICALLY 4 TIMES A DAY BEFORE MEAL/BED USE FOUR TIMES A DAY OR DIRECTED. 3 Active FREESTYLE LITE test strip TEST FOUR TIMES A DAY OR DIRECTED. 3 Active HumaLOG KWIKPEN 100 UNIT/ML injection FOUR TIMES A DAY before meals and at bedtime Sliding Scale: BG < 150 give 0 units, 151-200 give 2 units, 201-250 give 4 units, 251 to 300 give 6 units, 301-350 give 8 units, >350 give 10 units 3 Active FreeStyle lancets TEST FOUR TIMES A DAY OR DIRECTED. 3 Active Sodium Fluoride (PreviDent 5000 Booster Plus) 1.1 % paste Please use pea size to brush teeth twice daily. Spit, do not rinse after brushing. 112 g 2 4 Active insulin pen needle (BD Pen Needle Micro U/F) 32G x 6 mm misc USE FOUR TIMES A DAY OR DIRECTED. 100 each 3 4 Active loratadine (Claritin) 10 MG tabletIndications: Seasonal allergies Take 1 tablet (10 mg) by mouth in the morning. 90 tablet 1 4 Active glucose (Glutose) 40 % gel oral gelIndications:Typ e 1 diabetes mellitus with hyperglycemia (CMS/HCC) Take 15 g by mouth if needed for low blood sugar. 45 g 11 5 Active Lantus SoloStar 100 UNIT/ML penIndications:Typ e 1 diabetes mellitus with hyperglycemia (CMS/HCC) Inject 20 Units under the skin in the evening. 3 mL 5 05/11/19 26 Active fluconazole (Diflucan) 150 MG tablet Take 1 tablet (150 mg) by mouth 1 (one) time per week for 14 days. 2 tablet 5 01/12/20 25 Active Active Problems Problem Noted Date Diagnosed Date Acute vaginitis 12/28/2024 Assessment & Plan (12/28/2024 4:02 PM EDT): Most likely Alexandra due to history of [...] in case she has an AMAB partner Encounter for preventive health examination 11/2023 Assessment & Plan (05/10/2024 3:08 PM EST): Discussed with patient re increase fresh fruit and vegetable intake. Counseled re moderate exercise as tolerated, up to 20min/d Patient feels safe at home. PAP smear: N/A Eye exam: UTD, next one due 08/2024 Lipids/FBS: UTD, next one due 12/2024 Vaccinations: Declined COVID Immunization today, all other immunization are UTD. Dental visit: overdue, patient has a scheduled appointment. Assessment & Plan (07/31/2023 10:15 AM EDT): Discussed with patient re increase fresh fruit and vegetable intake. Counseled re moderate exercise as tolerated, up to 20min/d Patient feels safe at home. PAP smear: Counseled re cervical Ca screen I recommended that even if she's celibate and has had HPV vax, she should be screened. She prefers to put it off for now, agreed to discuss it in future visits. Will fu Eye exam: Up to date, next one due on 08/2023 Lipids/FBS: Up to date, next ones due on 04/2024 Vaccinations: Up to date. Dental visit: Overdue, I gave her info re dental clinics. Assessment & Plan (04/29/2023 3:29 PM EST): Discussed with patient re increase fresh fruit and vegetable intake. Counseled re moderate exercise as tolerated, up to 20min/d Patient feels safe at home. PAP smear: Counseled re cervical Ca screen I recommended that even if she's celibate and has had HPV vax, she should be screened. She prefers to put it off for now, agreed to discuss it in future visits. Will fu Eye exam: Up to date, next one due on 08/2023 Lipids/FBS: Up to date, next ones due on 04/2024 Vaccinations: Up to date. Dental visit: Overdue, I gave her info re dental clinics. Type 1 diabetes mellitus with hyperglycemia 08/2022 Assessment & Plan (10/20/2024 8:50 AM EDT): Controlled. A1c is at goal. Continue on insulin pump and CGM monitoring by [facility] director graphics Counseled re more frequent low calorie/carb meals. Encouraged physical activity as tolerated. FU in 3-4 months. Foot examination is normal, no diabetic neuropathy Dental examination up-to-date, recommended to have dental prophylaxis every 6 months Assessment & Plan (06/11/2024 9:44 AM EST): It seems to be well-controlled on insulin pump, she will continue to follow-up at [facility] director graphics. Foot examination is normal today A has appointment for ophthalmology evaluation next month at [facility] Assessment & Plan (05/10/2024 7:42 PM EST): Controlled. A1c is at goal. Continue on Insulin pump. Counseled re more frequent low calorie/carb meals. Encouraged physical activity as tolerated. FU with Extension Supervisor. Assessment & Plan (02/02/2024 10:12 AM EDT): Uncontrolled. Continue on Lantus + Humalog, getting ready for insulin pump Counseled re more frequent low calorie/carb meals. Check fgstk 3x daily Encouraged physical activity as tolerated. FU in 4 months w me and with endocrinology. Influenza IZ is up to date, advised to get Covid vax at our vaccine clinic or nearest pharmacy. Dental and Eye appt are up to date. Assessment & Plan (08/14/2023 9:34 AM EDT): It seems to be fairly controlled, A1c not quite at goal but significant improved. Continue Lantus 20 U + Humalog 5-8 U TID AC meals Continue fu w/ [facility] endo and DM educator appointment next week She has an appointment w/ ophthalmology Dentist, prophylaxis and adult IZ are up to date We discussed the importance of daily foot check and checking for foot ulcers Counseled re more frequent low calorie/carb meals. Check fgstk daily Encouraged physical activity as tolerated. FU in 4 m Assessment & Plan (04/29/2023 10:05 AM EST): Non compliant with diet, we discussed re healthier dietary choices. She will fuw ith DM educator, may need to use carb correction method + sliding scale FU with endo for insulin pump education. In terms of DM comorbidity: -She doesn have microalbuminuria -LDL is at goal, FU in 1y -Opto appt is up to date, next one due on August -Foot exam up to date, no neuropathy. -Adult IZs are uptodate Assessment & Plan (04/21/2023 9:33 AM EST): It seems to be better controlled. Continue Lantus 20u + Humalog 2-10u tid ac meals per [facility] endo. FU closely with DM education. PCV 20 today. Fu with me for PE. Assessment & Plan (03/18/2023 2:57 PM EST): Uncontrolled A1c is 11. Most likely type 1, will order labs. Increase Lantus to 15 units Continue Humalog sliding scale TID (2-10 units). She's a candidate for CGM device, await for labs (type 1 vs 2) Counseled re more frequent low calorie/carb meals, caution with hypoglycemia, keep a snack always at hand or oral glucose gel. Check fgstk three x daily Encouraged physical activity as tolerated. Pt recently had Covid booster and flu IZ is up to date Fu in 3-4 wks, we'll decide on endo referral if she's def Type1, it doesn't seem that labs were done at this admission. If Type 2, I will refer her to CDTM program. Vitamin D deficiency 07/11/2022 Assessment & Plan (04/29/2023 10:01 AM EST): Restart Vit D supplementation x 6m. Counseled re outdoor exercise daily x 15 min + sun exposure. Assessment & Plan (07/11/2022 9:30 AM EDT): Start vit D supplementation x 6 months recommended outdoor exercise FU vitamin D levels in 1 year. Iron deficiency anemia due to chronic blood loss 05/29/2022 Assessment & Plan (10/20/2024 8:51 AM EDT): Resolved status post iron supplementation. Check H&H in 1 year or earlier as needed DUB Assessment & Plan (06/11/2024 9:44 AM EST): Hemoglobin significantly improved from 10-12 on iron supplementation. Continue iron supplementation to complete his bottle and will follow-up hemoglobin in 3 months. Assessment & Plan (02/02/2024 10:13 AM EDT): Unclear cause, it could be related to new onset DM, chronic disease Order labs, continue Iron supplementation (can take Iron gummy bears tid) and fu in 4mo Assessment & Plan (08/14/2023 9:35 AM EDT): Hemoglobin is stable Encouraged to use iron daily as apposed to qOD Fu labs in 3 m. Assessment & Plan (04/29/2023 10:06 AM EST): We called pharmacy, they will have Iron tabs ready this afternoon, I made her aware of it. FU hb and Iron levels in 6m Assessment & Plan (04/21/2023 9:32 AM EST): It seems to be related to menstruation, pelvic US last year is normal. Restart Iron 1x/d and take Miralax daily, re consult prn constipation. Recheck hb in 3m then 6mo if off Iron suppl. Assessment & Plan (11/01/2022 10:07 AM EDT): significantly improved complete Iron + vitamin C this month and stop FU with me in 6 months Will refer to hematology to evaluate history of profound anemia which doesn't seem to be related to menstrual bleeding/GI bleeding. Assessment & Plan (07/11/2022 9:30 AM EDT): On iron + vit C supplementation, hemoglobin is improving. She tolerates meds well. Not entirely clear that it comes only from [facility], will send a pelvic US and repeat labs in 3 months. Will order hemoccult. Increase PO fluids during menstruation. Assessment & Plan (05/29/2022 9:57 AM EST): Previously from [facility]. Significant drop in hemoglobin Will check iron studies, pt to restart iron supplementation and FU in 6 weeks. Seasonal allergies 05/29/2022 Assessment & Plan (05/29/2022 10:06 AM EST): Usually during spring time. pt will use Flonase or loratadine PRN. recommended to use face mask as needed to protect from allergies. Influenza and Covid booster up to date. 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 Encounters Date Type Department Care Team Description 12/28/2024 11:45 AM EDT Procedure Visit [facility] [address] [place] [phone] Indy Westbrook MD Acute vaginitis (Primary Dx) 12/28/2024 Travel 12/28/2024 Telephone [facility] [address] [place] [phone] Indy Westbrook MD appt change 12/28/2024 Telephone [facility] [address] [place] [phone] Indy Westbrook MD 12/28/2024 Telephone [facility] [address] [place] [phone] Indy Westbrook MD Chart prep 12/21/2024 Travel 11/17/2024 8:45 AM EDT Office Visit [facility] [address] [place] [address] Andreas Saldana DMD History of third molar tooth extraction, unspecified edentulism class (Primary Dx) 11/10/2024 Travel 11/04/2024 2:30 PM EDT Office Visit [facility] [address] [place] [address] Santi Gipson 10/28/2024 Travel 10/11/2024 2:15 PM EDT Office Visit [facility] [address] [place] [phone] Indy Westbrook MD Iron deficiency anemia due to chronic blood loss (Primary Dx); Type 1 diabetes mellitus with hyperglycemia ([facility]) 10/11/2024 Travel 10/11/2024 Telephone [facility] [address] [place] [phone] Indy Westbrook MD Chart Prep 10/07/2024 1:00 PM EDT Office Visit [facility] [address] [place] [address] Ara Mcallister DMD 10/05/2024 Travel from Last 3 Months Immunizations Immunization Administration Dates Next Due DTaP 01/26/2002, 9,1997,09/28 HPV, Quadrivalent 10/29/2007,02/12/2007,10/25/19 07 Hep B, Adolescent or Pediatric 08/09/1998,1997,1997 Hep B, adult 02/15/2021 Hib (HbOC) 07/11/1998,1997,1997 IPV 01/26/2002, 9,1997,09/28 Influenza injectable quadriv alent IIV4 with preservative 06/09/2015 Influenza injectable quadriv alent preservative free 01/15/2023,02/06/2021,04/02/2019 Influenza, IIV3, injectable 01/15/2023,1 ,04/02/2019,06/09 Influenza, Split (incl. yobany fied surface antigen) 01/14/2013 MMR 01/26/2002,08/09/1998 Meningococcal ACWY, unspecified 09/16/2014,12/08 Meningococcal MCV4P ACYW-135 09/16/2014,12/09/19 09 Pneumococcal Conjugate PCV 20 04/21/2023 Tdap 12/22/2020,12/08/2008 Varicella 12/08/2008,08/10/1998 Family History Medical History Relation Name Comments Glaucoma Mother Relation Name Status Comments Mother Social History Tobacco Use Types Packs/Day Years [...] not to disclose 2021 10:15 AM EDT Last Filed Vital Signs Vital Sign Reading Time Taken Comments Blood Pressure 126/80 12/28/2024 12:00 PM EDT Pulse 84 12/28/2024 12:00 PM EDT Temperature 36.8 C (98.2 F) 12/28/2024 12:00 PM EDT Respiratory Rate 20 12/28/2024 12:00 PM EDT Oxygen Saturation 98% 10/11/2024 2:26 PM EDT Inhaled Oxygen Concentration - - Weight 89.1 kg (196 lb 6.4 oz) 12/28/2024 12:00 PM EDT Height 160 cm (5' 3 ) 12/28/2024 12:00 PM EDT Body Mass Index 34.79 12/28/2024 12:00 PM EDT Plan of Treatment Upcoming Encounters Date Type Department Care Team (Late st Contact Info) Description 03/08/2025 11:45 AM EST Procedure Visit [facility] [address] [place] [address] Indy Westbrook MD [address] [place] [address] Health Maintenance Due Date Last Done Comments Pap Smear 2018 COVID-19 Vaccine ( season) 2024 03/22/2023, 01/19/2022, 06/13/2021, Additional history exists Influenza Vaccine (#1) 2024 , 01/15/2023, 01/15/2023, Additional history exists Dental Oral Exam 12/20/2024 06/18/2024, 06/06/2023 Dental Prophylaxis 12/20/2024 06/18/2024, 06/26/2023 Alcohol/Substance Use Screening 02/01/2025 02/02/2024 Diabetes: Urine Protein Screening 02/01/2025 02/02/2024 Lipid Panel 02/01/2025 02/02/2024, 04/26/2022 Diabetes: Hemoglobin A1C 04/12/2025 025, 05/10/2024, 02/02/2024, Additional history exists SDOH Screening 05/28/2025 05/28/2024 Diabetes: Foot Exam 06/11/2025 06/11/2024, 06/11/2024, 06/11/2024, Additional history exists Dental X-Ray: Bitewings 06/19/2025 06/18/2024, 06/06 Depression Screening 10/11/2025 10/11/2024, 10/12/19 25 Disability Screening 10/11/2025 10/11/2024 Family Planning (PISQ) 12/28/2025 12/28/2024 Tobacco Screening 12/28/2025 12/28/2024 Eye Exam 08/23/2026 08/23/2024, 08/12, 08/23/2024, Additional history exists Dental X-Ray: Full Mouth 09/03/2027 09/01/2024, 05/16 DTaP/Tdap/Td Vaccines (7 - Td or Tdap) 12/22/2030 12/22/2020, 12/08/2008, 01/26/2002, Additional history exists Zoster Vaccines (1 of 2) 06/22/2047 RSV Patients and Patients Aged 60 years or older (1 - 1-dose 75+ series) 2072 HIB Vaccines Completed 07/11/1998, 12/13, 1997 IPV Vaccines Completed 01/26/2002, 06/14, 1997, Additional history exists HPV Vaccines Completed 10/29/2007, 04/2006, 10/24/2006 Meningococcal Vaccine Completed 09/16/2014 , 09/16/2014, 12/08/2008, Additional history exists Hepatitis B Vaccines Completed 02/15/2021, 08/09/1998, 1997, Additional history exists Pneumococcal Vaccine: Pediatrics (0 to 5 Years) and At-Risk Patients (6 to 49) Years Completed 04/21/2023 HIV Screening Completed 02/02/2024 Hepatitis C Screening Completed 02/02/2024 Hepatitis A Vaccines Aged Out No long er eligible based on patient's age to complete this topic Meningococcal B Vaccine Aged Out No l onger eligible based on patient's age to complete this topic RSV under 20 months Aged Out No longe r eligible based on patient's age to complete this topic Rotavirus Vaccines Aged Out No longer eligible based on patient's age to complete this topic Procedures Procedure Name Priority Date/Time Associated Diagnosis Comments 32 REMOVAL OF IMPACTED TOOTH - COMPLETELY BONY Routine 11/17/2024 8:45 AM EDT 17 REMOVAL OF IMPACTED TOOTH - COMPLETELY BONY Routine 11/17/2024 8:45 AM EDT 16 REMOVAL OF IMPACTED TOOTH - COMPLETELY BONY Routine 11/17/2024 8:45 AM EDT 5 DO RESIN-BASED COMPOSITE - 2 SURF, POSTERIOR Routine 11/04/2024 2:30 PM EDT POCT GLYCATED HEMOGLOBIN, TOTAL Routine 10/11/2024 2:28 PM EDT Type 1 diabetes mellitus with hyperglycemia (CMS/HCC) POCT GLUCOSE Routine 10/11/2024 2:28 PM EDT Type 1 diabetes mellitus with hyperglycemia (CMS/HCC) CASE PRESENTATION, DETAILED AND EXTENSIVE TREATMENT PLANNING Routine 10/07/2024 1:00 PM EDT 4 MO RESIN-BASED COMPOSITE - 2 SURF, POSTERIOR Routine 10/07/2024 1:00 PM EDT PANORAMIC RADIOGRAPHIC IMAGE Routine 09/01/2024 2:30 PM EDT Full PROPHYLAXIS - ADULT Routine 06/18/2024 8:00 AM EST BITEWINGS - 4 RADIOGRAPHIC IMAGES Routine 06/18/2024 8:00 AM EST PERIODIC ORAL EVALUATION - ESTABLISHED PATIENT Routine 06/18/2024 8:00 AM EST ALBUMIN, RANDOM URINE W/CREATININE Routine 02/02/2024 10:36 AM EDT Type 1 diabetes mellitus with hyperglycemia (CMS/HCC) HEPATITIS PANEL, GENERAL Routine 02/02/2024 10:29 AM EDT Iron deficiency anemia due to chronic blood loss HIV 1/2 ANTIGEN/ANTIBODY, FOURTH GENERATION W/RFL Routine 02/02/2024 10:29 AM EDT Iron deficiency anemia due to chronic blood loss LIPID PANEL WITH REFLEX TO DIRECT LDL Routine 02/02/2024 10:29 AM EDT Type 1 diabetes mellitus with hyperglycemia (CMS/HCC) from Last 3 Months or Most Recently Relevant to Health Maintenance Results * (ABNORMAL) POCT HGB A1C (10/11/2024 2:28 PM EDT) Hemoglobin A1C 6.2(A) 4.0 - 5.7 % QC Media Lot # [id number] Lot# Expiration Date Blood 10/11/2024 2:28 PM EDT Indy Westbrook MD POINT OF CARE TEST ENTER /EDIT ORDERABLES Final Result * POCT Glucose (10/11/2024 2:28 PM EDT) Glucose Blood, POC 77 60 - 200 mg/dL QC Media Lot # [id number] Lot# Expiration Date Blood Capillary blood specimen / Unknown 10/11/2024 2:28 PM EDT Indy Westbrook MD POINT OF CARE TEST ENTER /EDIT ORDERABLES Final Result * Albumin, Random Urine W/Creatinine (02/02/2024 10:36 AM EDT) Creatinine, Urine 268.94 mg/dL [facility] Microalbumin Urine 21.0 mg/L [facility] Microalbum Creatinine Ratio Ur 7.8 <30 ug/mg cr [facility] Comment:Albumin/Creatinine R at Reference Ranges: Normal: < 30 ug/mg creatinine Microalbuminuria: 30 - 300 ug/mg creatinineClinical Albuminuria: > 300 ug/mg creatinine Urine (Urine, Random) 02/02/2024 10:36 AM EDT 02/02/2024 11:25 AM EDT us Indy Westbrook MD LAB URINE ORDERABLES Fin al Result Performing Organization Address City/[facility]/ZIP Co de Phone Number [facility] [address] [place] [address] [phone] * (ABNORMAL) Lipid Panel with Reflex to Direct LDL (02/02/2024 10:29 AM EDT) Triglycerides 83 <150 mg/dL [facility] Comment:Desirable Triglyceri de: less than 150 mg/dLBorderline High Triglyceride 150-199 mg/dLHigh Triglyceride: 200-499 mg/dLVery High Triglyceride: greater than or equal to 5OO mg/dL Cholesterol 191 <200 mg/dL [facility] Comment:Desirable Cholestero l: less than 200 mg/dLBorderline High Cholesterol: 200-239 mg/dLHigh Cholesterol: greater than 239 mg/dL LDL Cholesterol Calculated 118(H) <100 mg/dL [facility] Comment:Desirable LDL: less than 100 mg/dLNear Optimal/Above Optimal LDL: 110- 129 mg/dLBorderline High LDL: 130-159 mg/dLHigh LDL: 160-189 mg/dLVery High LDL: greater than or equal to 190 mg/dL HDL Cholesterol 57 >40 mg/dL [facility] Comment:Desirable HDL: great er than 40 mg/dL Note: This HDL assay may give artificially low results in patients with liver disease. Blood 02/02/2024 10:2 9 AM EDT 02/02/2024 11:39 AM EDT us Indy Westbrook MD LAB BLOOD ORDERABLES Fin al Result Performing Organization Address City/[facility]/ZIP Co de Phone Number [facility] [address] [place] [address] [phone] * Hepatitis Panel, General (02/02/2024 10:29 AM EDT) Hepatitis A IgM Nonreactive Nonreactive [facility] Comment:IgM antibodies to MCCOY V not detected; does not exclude earlyacute or recovered HAV infection. ~Hepatitis B Surface Antibody REACTIVE Nonreactive [facility] Comment:REACTIVE: > 11.99 mI U/mL Hepatitis B Core Antibody Nonreactive Nonreactive [facility] Hepatitis C Antibody Nonreactive Nonreactive [facility] Comment:Antibodies to HCV no t detected; does not exclude early acuteHCV infection. Hepatitis B Surface Ag Negative Negative [facility] Blood 02/02/2024 10:2 9 AM EDT 02/02/2024 11:39 AM EDT us Indy Westbrook MD LAB BLOOD ORDERABLES Fin al Result Performing Organization Address [facility]/ZIP Co de Phone Number [facility] [address] [place] [address] [phone] * HIV-1/2 Antigen and Antibodies, Fourth Generation, with Reflexes (02/02/2024 10:29 AM EDT) HIV AB/AG Nonreactive Nonreactive [facility] Comment:HIV-1 p24 Ag and/or HIV-1/HIV-2 Ab not detected.A test result that is nonreactive does not exclude thepossibility of exposure to or infection with HIV-1 and/orHIV-2. Nonreactive results in this assay for individualswith prior exposure to HIV-1 and/or HIV-2 may be due toantigen and antibody levels that are below the limit ofdetection of this assay.The [place] HIV Ag/Ab Combo assay result andsupplemental assay results should be interpreted inconjunction with the patient's clinical presentation,history and other laboratory results. If the results areinconsistent with clinical evidence, additional testing issuggested to confirm the result. Blood Venous blood specimen / Unknown 02/02/2024 10:29 AM EDT 02/02/2024 11:39 AM EDT us Indy Westbrook MD LAB BLOOD ORDERABLES Fin al Result Performing Organization Address City/[facility]/ZIP Co de Phone Number [facility] [address] [place] [address] [phone] from Last 3 Months or Most Recently Relevant to Health Maintenance Insurance [facility] , [address] [place] [address] [facility] Care Teams Human Services Program Specialist Relationship Specialty Start Date End Date Indy Westbrook MD [address] [place] [phone] PCP - General Family Medicine 04/02/19
--- OUTSIDE RECORDS SUMMARY | 2024-12-28 19:16 | XMS_ITS | Encounter Summary ---
Author Organization [employer] Address [address] [facility] [address] [place] [address] Care Team Providers Care Turkey Egg Gatherer Name Role Phone Indy Westbrook MD Primary Care Provider + Encounter Details Date Type Department Care Team ([facility] Contact Info) Description 03/24/2023 Abstract [facility] [address] [place] [address] Asha Ellison BDS Social History Tobacco Use Types Packs/Day Years Used Date Smoking Tobacco: Never Smokeless Tobacco: Never Alcohol Use Standard Drinks/Week Comments Yes 0 (1 standard drink = 0.6 oz pur e alcohol) Socially Housing Stability Answer Date Recorded What is your housing situation today? I have lillian smith 02/17/[address] you li ve. Do you have problems with any of the following? None of the above 02/17/2023 Food Insecurity Answer Date Recorded Within the past 12 months, y ou worried that your food would run out before you got money to buy more: Never True 02/17/2023 Within the past 12 months,th e food you bought just didn't last and you didn't have enough money to get more: Never True 09/2022 Transportation Answer Date Recorded In the past 12 months, has l ack of transportation kept you from medical appts, meetings, work or from getting things needed for daily living? No 02/17/2023 Utilities Answer Date Recorded In the past 12 months, has t he electric, gas, oil or water company threatened to shut off services in your home? No 02/17/2023 Depression Answer Date Recorded Patient Health Questionnaire-2 Score 0 04/26/2022 Comments Unknown Sex and Gender Information Value Date Recorded [...] Description 03/08/2025 11:45 AM EST Procedure Visit [facility] [address] [place], [place] [phone] Indy Westbrook MD [address] [place] [address] documented as of this encounter Visit Diagnoses Not on filedocumented in this encounter Care Teams Turkey Egg Gatherer Relationship Specialty Start Date End Date Indy Westbrook MD [address] [place] [address] [phone] PCP - General Family Medicine 04/02/19 documented as of this encounter
--- OUTSIDE RECORDS SUMMARY | 2024-12-28 19:16 | XMS_ITS | Encounter Summary ---
Author Organization [employer] Address [address] [facility] 7t [place] [address] Care Team Providers Care Newspaper Photojournalist Name Role Phone Indy Westbrook MD Primary Care Provider + Reason for Visit * Reason Onset Date Comments Chart prep 12/28/2024 Encounter Details Date Type Department Care Team ([facility] Contact Info) Description 12/28/2024 Telephone [facility] [address] [place], [place] [phone] Indy Westbrook MD 230 [place], [place] [phone] Chart prep Social History Tobacco Use Types Packs/Day Years [...] AM EDT documented as of this encounter Miscellaneous Notes * Telephone Encounter - Jayla Jo [place] - 12/28/2024 9:38 AM EDT Chart Prep Labs: not applicable Images: not applicable Referrals: not applicable Vaccines due: Covid and Flu Screenings: not applicable Overdue care gaps: SBIRT documented in this encounter Plan of Treatment Upcoming Encounters Date Type Department Care Team (Late st Contact Info) Description 03/08/2025 11:45 AM EST Procedure Visit [facility] [address] [place] [phone] Indy Westbrook MD 230 [place] [address] documented as of this encounter Visit Diagnoses Not on filedocumented in this encounter Additional Health Concerns Assessment Noted Time PHQ-9 Depression Total Score: 2 10/12/19 25 2:45 PM EDT documented as of this encounter Care Teams Newspaper Photojournalist Relationship Specialty Start Date End Date Indy Westbrook MD [address] [place] [phone] PCP - General Family Medicine 04/02/19 documented as of this encounter
--- OUTSIDE RECORDS SUMMARY | 2024-12-28 19:16 | XMS_ITS | Encounter Summary ---
Author Organization [employer] Address [address] [facility] 7t [place] [address] Care Team Providers Care Mobile Pet Groomer Name Role Phone Indy Westbrook MD Primary Care Provider + Encounter Details Date Type Department Care Team ([facility] Contact Info) Description 03/26/2023 Orders Only [facility] 230 [place], [place] [phone] Indy Westbrook MD 230 [place] [address] Type 1 diabetes mellitus with hyperglycemia (CMS/HCC) (Primary Dx) Social History Tobacco Use Types Packs/Day Years Used Date Smoking Tobacco: Never Smokeless Tobacco: Never Alcohol Use Standard Drinks/Week Comments Yes 0 (1 standard drink = 0.6 oz pur e alcohol) Socially Housing Stability Answer Date Recorded What is your housing situation today? I have lillianselvin smith 02/17/[address] you [...] Description 03/08/2025 11:45 AM EST Procedure Visit [facility] [address] [place] [address] Indy Westbrook MD [address] [place] [phone] documented as of this encounter Visit Diagnoses Diagnosis Type 1 diabetes mellitus with hyperglycemia (CMS/HCC)- Primary documented in this encounter Care Teams Mobile Pet Groomer Relationship Specialty Start Date End Date Indy Westbrook MD [address] [place] [phone] PCP - General Family Medicine 04/02/19 documented as of this encounter
--- OUTSIDE RECORDS SUMMARY | 2024-12-28 19:16 | XMS_ITS | Encounter Summary ---
Author Organization [employer] Address [address] [facility] 7t [place] [address] Care Team Providers Care Hearing Consultant Name Role Phone Indy Westbrook MD Primary Care Provider + Encounter Details Date Type Department Care Team ([facility] Contact Info) Description 12/28/2024 Telephone [facility] 230 [place], [place] [phone] Indy Westbrook MD 230 [place] [address] Social History Tobacco Use Types Packs/Day Years [...] Encounter - Jayla Jo [place] - 12/28/2024 10:50 AM EDT Tc note duplicated documented in this encounter Plan of Treatment Upcoming Encounters Date Type Department Care Team (Late st Contact Info) Description 03/08/2025 11:45 AM EST Procedure Visit [facility] [address] [place] [address] Indy Westbrook MD 230 [place] [address] documented as of this encounter Visit Diagnoses Not on filedocumented in this encounter Additional Health Concerns Assessment Noted Time PHQ-9 Depression Total Score: 2 10/12/19 25 2:45 PM EDT documented as of this encounter Care Teams Hearing Consultant Relationship Specialty Start Date End Date Indy Westbrook MD 230 [place] [address] PCP - General Family Medicine 04/02/19 documented as of this encounter
--- OUTSIDE RECORDS SUMMARY | 2024-12-28 19:16 | XMS_ITS | Encounter Summary ---
Author Organization [employer] Address [address] [place] [address] 7t [place] [address] Care Team Providers Care Waxer Floor Name Role Phone Indy Westbrook MD Primary Care Provider + Encounter Details Date Type Department Care Team ([facility] Contact Info) Description 04/25/2023 Orders Only [facility] 230 [place], [place] [phone] Indy Westbrook MD 230 [place] [address] Social History Tobacco Use Types Packs/Day Years [...] Description 03/08/2025 11:45 AM EST Procedure Visit [facility] [address] [place] [address] Indy Westbrook MD [address] [place] [address] documented as of this encounter Visit Diagnoses Not on filedocumented in this encounter Care Teams Waxer Floor Relationship Specialty Start Date End Date Indy Westbrook MD [address] [place] [address] PCP - General Family Medicine 04/02/19 documented as of this encounter
--- OUTSIDE RECORDS SUMMARY | 2024-12-28 19:16 | XMS_ITS | Encounter Summary ---
Author Organization [employer] Address [address] [facility] 7t [place] [address] Care Team Providers Care Refining Engineer Name Role Phone Indy Westbrook MD Primary Care Provider + Reason for Visit * Reason Onset Date Comments Med Refill 09/12/2023 Encounter Details Date Type Department Care Team ([facility] st Contact Info) Description 09/12/2023 Refill [facility] 230 [place], [place] [phone] Indy Westbrook MD 230 [place] [address] Seasonal allergies Social History Tobacco Use Types Packs/Day Years [...] the past 12 months, has t he [employer], [employer], oil or water company threatened to shut off services in your home? No 02/17/2023 Depression Answer Date Recorded Patient Health Questionnaire-2 Score 0 08/14/2023 Comments No Sex and Gender Information Value [...] Description 03/08/2025 11:45 AM EST Procedure Visit [facility] [address] [place], [place] [phone] Indy Westbrook MD 230 [place] [address] documented as of this encounter Visit Diagnoses Diagnosis Seasonal allergies Allergic rhinitis, cause unspecified documented in this encounter Care Teams Refining Engineer Relationship Specialty Start Date End Date Indy Westbrook MD [address] [place] [address] PCP - General Family Medicine 04/02/19 documented as of this encounter
--- OUTSIDE RECORDS SUMMARY | 2024-12-28 19:16 | XMS_ITS | Encounter Summary ---
Author Organization [employer] Address [address] [facility] 7t [place] [address] Care Team Providers Care Tool Analyst Name Role Phone Indy Westbrook MD Primary Care Provider + Reason for Visit * Reason Onset Date Comments appt change 12/28/2024 Encounter Details Date Type Department Care Team ([facility] Contact Info) Description 12/28/2024 Telephone [facility] 230 [place], [place] [phone] Indy Westbrook MD 230 [place] [address] appt change Social History Tobacco Use Types Packs/Day Years [...] Encounter - Jayla Jo MA - 12/28/2024 10:33 AM EDT Called patient to see if she can come in at 11:15. Patient agreed. documented in this encounter Plan of Treatment Upcoming Encounters Date Type Department Care Team (Late st Contact Info) Description 03/08/2025 11:45 AM EST Procedure Visit [facility] [address] [place] [address] Indy Westbrook MD 230 [place] [address] documented as of this encounter Visit Diagnoses Not on filedocumented in this encounter Additional Health Concerns Assessment Noted Time PHQ-9 Depression Total Score: 2 10/12/19 25 2:45 PM EDT documented as of this encounter Care Teams Tool Analyst Relationship Specialty Start Date End Date Indy Westbrook MD [address] [place] [address] PCP - General Family Medicine 04/02/19 documented as of this encounter
--- OUTSIDE RECORDS SUMMARY | 2024-12-28 19:16 | XMS_ITS | Encounter Summary ---
Author Organization [employer] Address [address] [place] [address] 7 [place] [address] Care Team Providers Care Reed Repairer Name Role Phone Indy Westbrook MD Primary Care Provider + Reason for Referral * Imaging (Routine) - Closed Specialty Diagnoses / Procedures Referred By Merlyn narayanan Referred To Contact Diagnoses Iron deficiency anemia due to chronic blood loss DUB (dysfunctional uterine bleeding) Procedures Us Pelvis complete Indy Westbrook MD [address] [place] [address] Phone: tel: fax: [address] Phone: tel: fax: Referral ID Status Reason Start Date Expiration Date Visits Re quested Visits Authorized [id number] Closed 07/31/2022 01/27/2023 1 1 * Imaging (Routine) - Closed Specialty Diagnoses / Procedures Referred By Merlyn t Referred To Contact Diagnoses Iron deficiency anemia due to chronic blood loss DUB (dysfunctional uterine bleeding) Procedures US Pelvis Transvaginal Indy Westbrook MD [address] [place] [address] Phone: tel: fax: [address] Phone: tel: fax: Referral ID Status Reason Start Date Expiration Date Visits Re quested Visits Authorized [id number] Closed 07/31/2022 01/27/2023 1 1 Encounter Details Date Type Department Care Team (Late st Contact Info) Description 07/31/2022 Orders Only [facility] 230 [place] [address] Indy Westbrook MD [address] [place] [address] Iron deficiency anemia due to chronic blood loss (Primary Dx); DUB (dysfunctional uterine bleeding) Social History Tobacco Use Types Packs/Day Years Used Date Smoking Tobacco: Never Smokeless Tobacco: Never Alcohol Use Standard Drinks/Week Comments Not Currently 0 (1 standard drink = 0.6 oz pur e alcohol) Socially Depression Answer Date Recorded Patient Health Questionnaire-2 Score 0 04/26/2022 Comments Unknown Sex and Gender Information Value Date Recorded Sex Assigned at Female 02/11/2022 10:15 AM EDT Legal Sex Female 10:15 AM EDT Gender Identity Female 02/11/2022 10:15 AM EDT Sexual Orientation Choose not to disclose 2021 10:15 AM EDT COVID-19 Exposure Response Date Recorded In the last 10 days, have yo u been in contact with someone who was confirmed or suspected to have Coronavirus/COVID-19? No / Unsure 07/11/2022 8:46 AM EDT documented as of this encounter Miscellaneous Notes * Result Encounter Note - Indy Westbrook MD - 07/31/2022 2:16 PM EDT Results of recent pelvic US couldn't visualize see left ovary well(probably bc position, but there wasn't anything big to call attention to it) and otherwise wnl. Please call patient re results pretty much normal, Im not that concerned re left ovary for now as it wouldn't explain anemia. Please askhow iron rx is going and remind her to repeat BW 1w prior to her appt w me. We'll decide on further labs at that appt documented in this encounter Plan of Treatment Upcoming Encounters Date Type Department Care Team (Late st Contact Info) Description 03/08/2025 11:45 AM EST Procedure Visit [facility] [address] [place] [address] Indy Westbrook MD [address] [place] [address] Scheduled Orders Name Type Priority Associated Diagnoses Orde r Schedule US Pelvis Transvaginal Imaging Routine Iron deficiency anemia due to chronic blood loss DUB (dysfunctional uterine bleeding) Expected: 07/31/2022, Expires: 08/01/2023 Us Pelvis complete Imaging Routine Iron deficiency anemia due to chronic blood loss DUB (dysfunctional uterine bleeding) Expected: 07/31/2022, Expires: 08/01/2023 documented as of this encounter Procedures Procedure Name Priority Date/Time Associated Diagnosis Comments US PELVIS TRANSVAGINAL Routine 08/19/2022 4:05 PM EDT documented in this encounter Results * US Pelvis Transvaginal (08/19/2022 4:05 PM EDT) Anatomical Region Laterality Modality Pelvis Ultrasound 08/19/2022 4:05 PM EDT Narrative 08/21/2022 10:07 PM EDT [address] [address] Ultrasound Report Signed Patient: Minnie Ny MR#: [id number] 0 : 1995 Acct:[id number] Age/Sex: 27 / F ADM Date: 08/19/22 Loc: HO.US Attending Dr: Indy Westbrook MD Ordering Physician: Indy Westbrook MD Date of Service: 08/19/22 Procedure(s): US pelvic and transvaginal Accession Number(s): [id number] cc: Indy Westbrook MD EXAMINATION: US PELVIS CLINICAL INFORMATION: Menorrhagia. COMPARISON: None available. TECHNIQUE: Ultrasound of the pelvis is performed using both transabdominal and transvaginal transducers along with Doppler. Transvaginal imaging is performed due to inadequate visualization transabdominally. FINDINGS: Uterus: The uterus is anteverted, anteflexed and measures 9.4 cm in length, 4.1 cm in AP, and 5.8 cm in transverse dimension. The double wall endometrial thickness is 1.0 cm. The uterus is smooth in contour and has normal myometrial echogenicity. No visible fibroid. Adnexa: Both ovaries are visualized. There is normal color-flow to the adnexa. There is no ovarian torsion. There is no pelvic ascites or fluid collection. Right ovary measures 3.3 x 2.4 x 2.8 cm and volume 11.6 mL. Left ovary is not visualized. There is no free fluid in the cul-de-sac. US/US pelvic and transvaginal IMPRESSION: 1. Unremarkable uterus and right ovary. 2. The left ovary is not seen. 3. There is no free fluid in the cul-de-sac. Dictated By: Geoff Ness MD Signed By: <Electronically signed by Geoff Ness MD in OV> 08/21/224 DD/ 1605 TD/TT: Laborer Yard: [facility] Procedure Note Donotuseinterpreter, Image - 08/30/2022 [place] [address] Ultrasound Report Signed Patient: Minnie NyMR#: [id number] 0 : 1995Acct:[id number] Age/Sex: 27 / FADM Date: 08/19/22 Loc: HO.US Attending Dr: Indy Westbrook MD Ordering Physician: Indy Westbrook MD Date of Service: 08/19/22 Procedure(s): US pelvic and transvaginal Accession Number(s): [id number] cc: Indy Westbrook MD EXAMINATION: US PELVIS CLINICAL INFORMATION: Menorrhagia. COMPARISON: None available. TECHNIQUE: Ultrasound of the pelvis is performed using both transabdominal and transvaginal transducers along with Doppler. Transvaginal imaging is performed due to inadequate visualization transabdominally. FINDINGS: Uterus: The uterus is anteverted, anteflexed and measures 9.4 cm in length, 4.1 cm in AP, and 5.8 cm in transverse dimension. The double wall endometrial thickness is 1.0 cm. The uterus is smooth in contour and has normal myometrial echogenicity. No visible fibroid. Adnexa: Both ovaries are visualized. There is normal color-flow to the adnexa. There is no ovarian torsion. There is no pelvic ascites or fluid collection. Right ovary measures 3.3 x 2.4 x 2.8 cm and volume 11.6 mL. Left ovary is not visualized. There is no free fluid in the cul-de-sac. US/US pelvic and transvaginal IMPRESSION: 1. Unremarkable uterus and right ovary. 2. The left ovary is not seen. 3. There is no free fluid in the cul-de-sac. Dictated By: Geoff Ness MD Signed By: <Electronically signed by Geoff Ness MD in OV> 08/21/22 2204 DD/ 1605 TD/TT: Laborer Yard: [facility] External Provider IMG US PROCEDURES Final Result documented in this encounter Visit Diagnoses Diagnosis Iron deficiency anemia due to chronic blood loss- Primary Iron deficiency anemia secondary to blood loss (chronic) DUB (dysfunctional uterine bleeding) Other disorder of menstruation and other abnormal bleeding from female genital tract documented in this encounter Care Teams Reed Repairer Relationship Specialty Start Date End Date Indy Westbrook MD [address] [place] [address] PCP - General Family Medicine 04/02/19 documented as of this encounter
[2024-12-29 10:42] LABS: CT PCR NOT DETECTED (Not Detect.); NG PCR NOT DETECTED (Not Detect.)
== END 2024-12-28 17:57 | disposition home or self-care (01) ==
LOC: HO.HHCLNP 17:56
PROVIDERS: Visit Provider Internal Medicine
DX: N76.0 Acute vaginitis (principal)
CPT/HCPCS: 87491; 87591

== ENCOUNTER 2025-03-08 12:20 | Outpatient (REF) | payer OTHER, SELFPAY ==
--- OUTSIDE RECORDS SUMMARY | 2025-03-08 11:45 | XMS_ITS | Encounter Summary ---
Author Organization [employer] Address [address] [facility] 7t [place] [address] Care Team Providers Care Structural Draftsman Name Role Phone Indy Westbrook MD Primary Care Provider + Reason for Visit * Reason Comments Gynecologic Exam Encounter Details Date Type Department Care Team (Latest Contact Info) Description 03/08/2025 11:45 AM EST Procedure Visit [facility] 230 [place], [place] [phone] Indy Westbrook MD 230 [place] [address] Encounter for cervical Pap smear with pelvic exam (Primary Dx); Type 1 diabetes mellitus with hyperglycemia (HCC); Encounter for immunization Social History Tobacco Use Types Packs/Day Years Used Date Smoking Tobacco: Never Smokeless Tobacco: Never Tobacco Cessation:Counseling Given: Not Answered Alcohol Use Standard Drinks/Week Comments Not Currently 0 (1 standard drink = 0.6 oz pur e alcohol) Socially Alcohol Answer Date Recorded How often do you have a drink containing alcohol ? 0 03/08/2025 How many drinks containing a lcohol do you have on a typical day when you are drinking? 0 03/08/2025 How often do you have six or more drinks on one occasion? 0 03/08/2025 Depression Answer Date Recorded Patient Health Questionnaire-9 [...] Date Recorded No desire to become (finding) 1 05/08/2024 Sex and Gender Information Value Date Recorded Sex Assigned at Female 02/11/2022 10:15 AM EDT Legal Sex Female 10:15 AM EDT Gender Identity Female 02/11/2022 10:15 AM EDT Sexual Orientation Choose not to disclose 2021 10:15 AM EDT documented as of this encounter Last Filed Vital Signs Vital Sign Reading Time Taken Comments Blood Pressure 142/70 03/08/2025 11:53 AM EST Pulse 86 03/08/2025 11:53 AM EST Temperature 36.6 C (97.8 F) 03/08/2025 11:53 AM EST Respiratory Rate 24 03/08/2025 11:53 AM EST Oxygen Saturation - - Inhaled Oxygen Concentration - - Weight 94.3 kg (208 lb) 03/08/2025 11:53 AM EST Height 160 cm (5' 3 ) 03/08/2025 11:53 AM EST Body Mass Index 36.85 03/08/2025 11:53 AM EST documented in this encounter Progress Notes * Indy Westbrook MD - 03/08/2025 11:45 AM EST SUBJECTIVE: Minnie Ny is a 29 y.o. year old female who presents for PAP smear. Denies recent illness, injury, or hospitalization. Last PAP: Never Hx abn PAP: n/a LMP: 02/16/25 Contraception:None/abstinence She is not in a relationship AMAB/AFAB partner: n/a Concern re STD?None Acute Concerns: Social History Social History Narrative Not on [...] problems, self-injury and suicidal ideas. OBJECTIVE: Vitals: 03/08/25 1153 BP: (!) 142/70 Pulse: 86 Resp: 24 Temp: 97.8 ??F (36.6 ??C) Physical Exam Machine Guide Base Winder present: Jayla Jo [place]. HENT: Right Ear: Tympanic membrane and ear [...] There is no abdominal tenderness. Genitourinary: Vagina: Normal. Cervix: Normal. Uterus: Normal. Adnexa: Right adnexa normal and left adnexa normal. Musculoskeletal: General: Normal range of motion. Cervical back: Neck supple. Skin: General: Skin is warm. Neurological: General: No focal deficit present. Mental Status: She is alert and oriented to person, place, and time. Psychiatric: Mood and Affect: Mood normal. Behavior: Behavior normal. Problem List Items Addressed This Visit Encounter for cervical Pap smear with pelvic exam - Primary Pelvic exam today wnl FU pap smear results/HPV/STI testing and will call back PRN positive results or FU in 3 months Pt feels safe at home no concern for DV/STDs Counseled regarding STI prevention If today's pap smear/co testing is normal next one will be due in 3 years. We discussed about control. She is aware of condom use for STI prevention and prevention, also aware of Plan B or Karla for emergency contraception. No other type of control desired at this time. Relevant Orders Pap Smear Type 1 diabetes mellitus with hyperglycemia (HCC) Controlled. A1c is at goal. Continue on Insulin pump by [facility] endo Counseled re more frequent low calorie/carb meals. Check fgstk 3x daily(has CGM) Encouraged physical activity as tolerated. FU in 3 months. Order labs Agreed to covid vax today. Relevant Orders POCT Glucose (Completed) POCT Hgb A1c (Completed) Other Visit Diagnoses Encounter for immunization Relevant Orders COVID-19 VACCINE [id number] (Comirnaty) 19 yrs + (Completed) Follow up in about 3 months (around 06/08/2025) for fu DM. Medications Ordered Prior to Encounter[3] [1] Patient Active Problem List Diagnosis Hand deformity, congenital Overweight Iron deficiency anemia due to chronic blood loss Seasonal allergies Vitamin D deficiency Type 1 diabetes mellitus with hyperglycemia (HCC) Encounter for preventive health examination Acute vaginitis Encounter for cervical Pap smear with pelvic exam [2] Family History Problem Relation Name Age [...] Plan Note - Indy Westbrook MD - 03/08/2025 1:24 PM EST Associated Problem(s): Encounter for cervical Pap smear with pelvic exam Pelvic exam today wnl FU pap smear results/HPV/STI testing and will call back PRN positive results or FU in 3 months Pt feels safe at home no concern for DV/STDs Counseled regarding STI prevention If today's pap smear/co testing is normal next one will be due in 3 years. We discussed about control. She is aware of condom use for STI prevention and prevention, also aware of Plan B or Karla for emergency contraception. No other type of control desired at this time. * Assessment & Plan Note - Indy Westbrook MD - 03/08/2025 1:23 PM EST Associated Problem(s): Type 1 diabetes mellitus with hyperglycemia (HCC) Controlled. A1c is at goal. Continue on Insulin pump by [facility] endo Counseled re more frequent low calorie/carb meals. Check fgstk 3x daily(has CGM) Encouraged physical activity as tolerated. FU in 3 months. Order labs Agreed to becky pan today. documented in this encounter Plan of Treatment Upcoming Encounters Date Type Department Care Team (Late st Contact Info) Description 06/10/2025 11:15 AM EST Office Visit [facility] [address] [place], [place] [phone] Indy Westbrook MD [address] [place], [place] [phone] Scheduled Orders Name Type Priority Associated Diagnoses Orde r Schedule Pap Smear Pathology and Cytology Routine Encounter for cervical Pap smear with pelvic exam Ordered: 03/08/2025 documented as of this encounter Procedures Procedure Name Priority Date/Time Associated Diagnosis Comments POCT GLYCATED HEMOGLOBIN, TOTAL Routine 03/08/2025 11:55 AM EST Type 1 diabetes mellitus with hyperglycemia (HCC) POCT GLUCOSE Routine 03/08/2025 11:51 AM EST Type 1 diabetes mellitus with hyperglycemia (HCC) documented in this encounter Results * (ABNORMAL) POCT Hgb A1c (03/08/2025 11:55 AM EST) Hemoglobin A1C 6.8(A) 4.0 - 5.7 % QC Media Lot # [id number] 2 Lot# Expiration Date Blood 03/08/2025 11:5 5 AM EST us Indy Westbrook MD POINT OF CARE TEST ENTER /EDIT ORDERABLES Final Result * POCT Glucose (03/08/2025 11:51 AM EST) Glucose Blood, POC 133 60 - 200 mg/dL Blood Capillary blood specimen / Unknown 03/08/2025 11:51 AM EST us Indy Westbrook MD POINT OF CARE TEST ENTER /EDIT ORDERABLES Final Result documented in this encounter Visit Diagnoses Diagnosis Encounter for cervical Pap smear with pelvic exam- Primary Type 1 diabetes mellitus with hyperglycemia (HCC) Encounter for immunization documented in this encounter Additional Health Concerns Assessment Noted Time PHQ-9 Depression Total Score: 2 10/12/19 25 2:45 PM EDT documented as of this encounter Care Teams Structural Draftsman Relationship Specialty Start Date End Date Indy Westbrook MD [address] [place] [address] PCP - General Family Medicine 04/02/19 documented as of this encounter
--- OUTSIDE RECORDS SUMMARY | 2025-03-09 14:36 | XMS_ITS | Clinical Summary ---
Author Organization [employer] Address [address] [place] [address] 7t [place] [address] Care Team Providers Care School Counsellor Name Role Phone Indy Westbrook MD Primary [...] gelIndications:Typ e 1 diabetes mellitus with hyperglycemia (HCC) Take 15 g by mouth if needed for low blood sugar. 45 g 11 5 Active Lantus SoloStar 100 UNIT/ML penIndications:Typ e 1 diabetes mellitus with hyperglycemia (HCC) Inject 20 Units under the skin in the evening. 3 mL 5 05/11/19 26 Active Active Problems Problem Noted Date Diagnosed Date Encounter for cervical Pap smear with pelvic exa m 03/08/2025 Assessment & Plan (03/08/2025 1:25 PM EST): Pelvic exam today wnl FU pap smear [...] type of control desired at this time. Acute vaginitis 12/28/2024 Assessment & Plan (12/28/2024 [...] mellitus with hyperglycemia 08/2022 Assessment & Plan (03/08/2025 1:23 PM EST): Controlled. A1c is at goal. Continue on Insulin pump by [facility] endo Counseled re more frequent low calorie/carb meals. Check fgstk 3x daily(has CGM) Encouraged physical activity as tolerated. FU in 3 months. Order labs Agreed to covid vax today. Assessment & Plan (10/20/2024 8:50 AM EDT): Controlled. A1c is at goal. Continue on insulin pump and CGM monitoring by [facility] helmet hat brim cutter Counseled re more frequent low calorie/carb meals. Encouraged physical activity as tolerated. FU in 3-4 months. Foot examination is normal, no diabetic neuropathy Dental examination up-to-date, recommended to have dental prophylaxis every 6 months Assessment & Plan (06/11/2024 9:44 AM EST): It seems to be well-controlled on insulin pump, she will continue to follow-up at [facility] helmet hat brim cutter. Foot examination is normal today A has appointment for ophthalmology evaluation next month at [facility] Assessment & Plan (05/10/2024 7:42 PM EST): Controlled. A1c is at goal. Continue on Insulin pump. Counseled re more frequent low calorie/carb meals. Encouraged physical activity as tolerated. 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 Assessment & Plan (02/02/2024 10:12 AM EDT): Uncontrolled. Continue on Lantus + Humalog, getting ready for insulin pump Counseled re more frequent low calorie/carb meals. Check fgstk 3x daily Encouraged physical activity as tolerated. FU in [address] and with endocrinology. Influenza IZ is up [...] U TID AC meals Continue fu w/ [facility] endo and DM educator appointment next week [...] + Humalog 2-10u tid ac meals per [facility] endo. FU closely with DM education. PCV [...] entirely clear that it comes only from DUB, will send a pelvic US and repeat labs in 3 months. Will order hemoccult. Increase PO fluids during menstruation. Assessment & Plan (05/29/2022 9:57 AM EST): Previously from [facility]. Significant drop in hemoglobin Will check iron [...] Encounters Date Type Department Care Team Description 03/08/2025 11:45 AM EST Procedure Visit [address] [address] Indy Westbrook MD Encounter for cervical Pap smear with pelvic exam (Primary Dx); Type 1 diabetes mellitus with hyperglycemia (HCC); Encounter for immunization 03/08/2025 Travel 03/01/2025 Travel 01/07/[address] [address] Indy Westbrook MD 01/07/2025 Results Follow-Up [address] [address] Indy Westbrook MD Chlamydia/N. Gonorrhoeae RNA, TMA, Urogenitial 12/28/2024 11:45 AM EDT Procedure Visit [address] [address] Indy Westbrook MD Acute vaginitis (Primary Dx) 12/28/2024 Travel 12/28/[address] [address] Indy Westbrook MD appt change 12/28/[address] [address] Indy Westbrook MD 12/28/[address] [address] Indy Westbrook MD Chart prep 12/21/2024 Travel from Last 3 Months Immunizations Immunization Administration Dates Next Due COVID-19 Non-US Vaccine, Pro duct Unknown 01/19/2022 DTaP 01/26/2002, 9,1997,09/28 HPV, Quadrivalent 10/29/2007,02/12/2007,10/25/19 07 Hep B, Adolescent or Pediatric 08/09/1998,1997,1997 Hep B, adult 02/15/2021 Hib (HbOC) 07/11/1998,1997,1997 IPV 01/26/2002, 9,1997,09/28 Influenza injectable quadriv alent IIV4 with preservative 06/09/2015 Influenza injectable quadriv alent preservative free 01/15/2023,02/06/2021,04/02/2019 Influenza, IIV3, injectable 01/21/2025,1 ,02/06/2021,04/02,06/09/2015 Influenza, Split (incl. yobany fied surface antigen) 01/14/2013 Influenza, seasonal, injecta ble, preservative free 01/20/2024 MMR 01/26/2002,08/09/1998 Meningococcal ACWY, unspecified 09/16/2014,12/08 Meningococcal MCV4P ACYW-135 09/16/2014,12/09/19 09 Pfizer Covid-19 Vaccine 12+ 03/08/2025 Pneumococcal Conjugate PCV 20 04/21/2023, 024 Tdap 12/22/2020,12/08/2008 Varicella 12/08/2008,08/10/1998 Family History Medical [...] your housing situation today? I have lillian sing 12/01/[address] you li [...] 24 03/08/2025 11:53 AM EST Oxygen Saturation 98% 10/11/2024 2:26 PM EDT Inhaled Oxygen Concentration - - Weight 94.3 kg (208 lb) 03/08/2025 11:53 AM EST Height 160 cm (5' 3 ) 03/08/2025 11:53 AM EST Body Mass Index 36.85 03/08/2025 11:53 AM EST Plan of Treatment Upcoming Encounters Date Type Department Care Team (Late st Contact Info) Description 06/10/2025 11:15 AM EST Office Visit [facility] [address] [place] [address] Indy Westbrook MD [address] [place] [address] Health Maintenance Due Date Last Done Comments Pap Smear 2018 Dental Oral Exam 12/20/2024 06/18/2024, 06/06/2023 Dental Prophylaxis 12/20/2024 06/18/2024, 06/26/2023 Diabetes: Urine Protein Screening 02/01/2025 02/02/2024 Lipid Panel 02/01/2025 02/02/2024, 04/26/2022 SDOH Screening 05/28/2025 05/28/2024 Diabetes: Foot Exam 06/11/2025 06/11/2024, 06/11/2024, 06/11/2024, Additional history exists Dental X-Ray: Bitewings 06/19/2025 06/18/2024, 06/06 Diabetes: Hemoglobin A1C 09/05/2025 025, 10/11/2024, 05/10/2024, Additional history exists Depression Screening 10/11/2025 10/11/2024, 10/12/19 Disability Screening 10/11/2025 10/11/2024 Alcohol/Substance Use Screening 03/08/2026 03/08/2025 Family Planning (PISQ) 03/08/2026 03/08/2025 Tobacco Screening 03/08/2026 03/08/2025 Eye Exam 08/23/2026 08/23/2024, 08/12, 08/23/2024, Additional [...] Additional history exists HPV Vaccines Completed 10/29/2007, 0 04/2006, 10/24/2006 Meningococcal Vaccine Completed 09/16/2014 , 09/16/2014, 12/08/2008, Additional history exists Hepatitis B Vaccines Completed 02/15/2021, 08/09/1998, 1997, Additional history exists Pneumococcal Vaccine: Pediatrics (0 to 5 Years) and At-Risk Patients (6 to 49) Years Completed 04/21/2023, 04/21/2023 HIV Screening Completed 02/02/2024 Hepatitis C Screening Completed 02/02/2024 Influenza Vaccine Completed 01/21/2025, , 01/20/2024, Additional history exists COVID-19 Vaccine Completed 03/08/2025, 12/2022, 06/13/2021, Additional history exists Hepatitis A Vaccines Aged Out No long [...] Type 1 diabetes mellitus with hyperglycemia (HCC) CHLAMYDIA/N. GONORRHOEAE RNA, TMA, UROGENITAL Routine 12/28/2024 12:30 PM EDT Acute vaginitis PANORAMIC RADIOGRAPHIC IMAGE Routine 09/01/2024 2:30 PM [...] to Health Maintenance Results * (ABNORMAL) POCT Hgb A1c (03/08/2025 11:55 AM EST) Pathologist [facility] Hemoglobin A1C 6.8(A) 4.0 - 5.7 % QC Media Lot # [id number] Lot# Expiration Date Blood 03/08/2025 11:5 5 AM EST Indy Westbrook MD POINT OF CARE TEST ENTER /EDIT ORDERABLES Final Result * POCT Glucose (03/08/2025 11:51 AM EST) Pathologist [facility] Glucose Blood, POC 133 60 - 200 mg/dL Blood Capillary blood specimen / Unknown 03/08/2025 11:51 AM EST Indy Westbrook MD POINT OF CARE TEST ENTER /EDIT ORDERABLES Final Result * Chlamydia/N. Gonorrhoeae RNA, TMA, Urogenitial (12/28/2024 12:30 PM EDT) Pathologist [facility] CT PCR NOT DETECTED Not Detect. [facility] Comment:A not detected test result does not exclude the possibilityof infection because test results can be affected byimproper specimen collection, concurrent antibiotic therapy,or the number of organisms in the specimen which may bebelow the sensitivity of the test. As with many diagnostictests, results from the Xpert CT/NG assay should beinterpreted in conjunction with other laboratory andclinical data available to the clinician.Xpert CT/NG performance has not been evaluated in patientsless than 14 years of age. The assay should not be used forthe evaluationof suspected sexual abuse or for other medico-legalindications. Additional testing is recommended in anycircumstance when false positive or false negative resultscould lead to adverse medical, social or psychologicalconsequences. NG PCR NOT DETECTED Not Detect. [facility] Comment:A not detected test result does not exclude the possibilityof infection because test results can be affected byimproper specimen collection, concurrent antibiotic therapy,or the number of organisms in the specimen which may bebelow the sensitivity of the test. As with many diagnostictests, results from the Xpert CT/NG assay should beinterpreted in conjunction with other laboratory andclinical data available to the clinician.Xpert CT/NG performance has not been evaluated in patientsless than 14 years of age. The assay should not be used forthe evaluationof suspected sexual abuse or for other medico-legalindications. Additional testing is recommended in anycircumstance when false positive or false negative resultscould lead to adverse medical, social or psychologicalconsequences. Urine (Urine, Random) 12/28/2024 12:30 PM EDT 12/28/2024 5:58 PM EDT us Indy Westbrook MD LAB MICROBIOLOGY - GENER AL ORDERABLES Final Result [facility] [address] [place], [place] [phone] * Albumin, Random Urine W/Creatinine (02/02/2024 10:36 AM EDT) Creatinine, Urine 268.94 mg/dL [facility] Microalbumin Urine 21.0 mg/L [facility] Microalbum Creatinine Ratio Ur 7.8 <30 ug/mg cr [facility] Comment:Albumin/Creatinine R atio Reference Ranges: Normal: < 30 ug/mg creatinine Microalbuminuria: 30 - 300 ug/mg creatinineClinical Albuminuria: > 300 ug/mg creatinine Urine (Urine, Random) 02/02/2024 10:36 AM EDT 02/02/2024 11:25 AM EDT us Indy Westbrook MD LAB URINE ORDERABLES Fin al Result Performing Organization Address [facility] de Phone Number [facility] [address] [place] [phone] * (ABNORMAL) Lipid Panel with Reflex to Direct LDL (02/02/2024 10:29 AM EDT) Triglycerides 83 <150 mg/dL [facility] Comment:Desirable Triglyceri de: less than 150 mg/dLBorderline High Triglyceride 150-199 mg/dLHigh Triglyceride: 200-499 mg/dLVery High Triglyceride: greater than or equal to 5OO mg/dL Cholesterol 191 <200 mg/dL [facility] Comment:Desirable Cholestero l: less than 200 mg/dLBorderline High Cholesterol: 200-239 mg/dLHigh Cholesterol: greater than 239 mg/dL LDL Cholesterol Calculated 118(H) <100 mg/dL [facility] Comment:Desirable LDL: less than 100 mg/dLNear Optimal/Above Optimal LDL: 110- 129 mg/dLBorderline High LDL: 130-159 mg/dLHigh LDL: 160-189 mg/dLVery High LDL: greater than or equal to 190 mg/dL HDL Cholesterol 57 >40 mg/dL [facility] Comment:Desirable HDL: great er than 40 mg/dL Note: This HDL assay may give artificially low results in patients with liver disease. Blood 02/02/2024 10:2 9 AM EDT 02/02/2024 11:39 AM EDT us Indy Westbrook MD LAB BLOOD ORDERABLES Fin al Result Performing Organization Address City/[facility] Co de Phone Number [facility] [address] [place] [phone] * Hepatitis Panel, General (02/02/2024 10:29 AM EDT) Hepatitis A IgM Nonreactive Nonreactive [facility] Comment:IgM antibodies to MCCOY V not detected; does not exclude earlyacute or recovered HAV infection. ~Hepatitis B Surface Antibody REACTIVE Nonreactive [facility] Comment:REACTIVE: > 11.99 mI U/mL Hepatitis B Core Antibody Nonreactive Nonreactive [facility] Hepatitis C Antibody Nonreactive Nonreactive [facility] Comment:Antibodies to HCV no t detected; does not exclude early acuteHCV infection. Hepatitis B Surface Ag Negative Negative [facility] Blood 02/02/2024 10:2 9 AM EDT 02/02/2024 11:39 AM EDT Indy Westbrook MD LAB BLOOD ORDERABLES Fin al Result [facility] [address] [place] [phone] * HIV-1/2 Antigen and Antibodies, Fourth Generation, with Reflexes (02/02/2024 10:29 AM EDT) Pathologist [facility] HIV AB/AG Nonreactive Nonreactive [facility] Comment:HIV-1 p24 Ag and/or HIV-1/HIV-2 Ab not detected.A test result that is nonreactive does not exclude thepossibility of exposure to or infection with HIV-1 and/orHIV-2. Nonreactive results in this assay for individualswith prior exposure to HIV-1 and/or HIV-2 may be due toantigen and antibody levels that are below the limit ofdetection of this assay.The Wakozi HIV Ag/Ab Combo assay result andsupplemental assay results should be interpreted inconjunction with the patient's clinical presentation,history and other laboratory results. If the results areinconsistent with clinical evidence, additional testing issuggested to confirm the result. Blood Venous blood specimen / Unknown 02/02/2024 10:29 AM EDT 02/02/2024 11:39 AM EDT Indy Westbrook MD LAB BLOOD ORDERABLES Fin al Result [facility] [address] [place] [phone] from Last 3 Months or Most Recently Relevant to Health Maintenance Insurance [facility] , [address] [place] [address] [facility] Care Teams School Counsellor Relationship Specialty Start Date End Date Indy Westbrook MD [address] [place] [phone] PCP - General Family Medicine 04/02/19
--- OUTSIDE RECORDS SUMMARY | 2025-03-09 14:36 | XMS_ITS | Encounter Summary ---
Author Organization [employer] Address [address] [place] [address] 7t [place] [address] Care Team Providers Care Wall And Floor Tiler Name Role Phone nIdy Westbrook MD Primary Care Provider + Encounter Details Date Type Department Care Team ([facility] Contact Info) Description 04/25/2023 Orders Only [facility] [address] [place], [place] [phone] Indy Wsetbrook MD [address] [place] [address] Social History Tobacco Use Types Packs/Day Years [...] Description 06/10/2025 11:15 AM EST Office Visit [facility] [address] [place] [address] Indy Westbrook MD [address] [place] [phone] documented as of this encounter Visit Diagnoses Not on filedocumented in this encounter Care Teams Wall And Floor Tiler Relationship Specialty Start Date End Date Indy Westbrook MD [address] [place] [phone] PCP - General Family Medicine 04/02/19 documented as of this encounter
--- OUTSIDE RECORDS SUMMARY | 2025-03-09 14:36 | XMS_ITS | Encounter Summary ---
Author Organization [employer] Address [address] [facility] 7t [place] [address] Care Team Providers Care Java Technical Architect Name Role Phone Indy Westbrook MD Primary Care Provider + Reason for Visit * Reason Onset Date Comments Med Refill 09/12/2023 Encounter Details Date Type Department Care Team ([facility] st Contact Info) Description 09/12/2023 Refill [facility] [address] [place], [place] [phone] Indy Westbrook MD [address] [place] [address] Seasonal allergies Social History Tobacco Use Types [...] the past 12 months, has t he [employer] oil or [employer] company threatened to shut [...] Description 06/10/2025 11:15 AM EST Office Visit [facility] [address] [place] [phone] Indy Westbrook MD [address] [place] [phone] documented as of this encounter Visit Diagnoses Diagnosis Seasonal allergies Allergic rhinitis, cause unspecified documented in this encounter Care Teams Java Technical Architect Relationship Specialty Start Date End Date Indy Westbrook MD [address] [place] [phone] PCP - General Family Medicine 04/02/19 documented as of this encounter
--- OUTSIDE RECORDS SUMMARY | 2025-03-09 14:36 | XMS_ITS | Encounter Summary ---
Author Organization [employer] Address [address] [facility] [address]t [place] [address] Care Team Providers Care Threader Name Role Phone Indy Westbrook MD Primary Care Provider + Encounter Details Date Type Department Care Team ([facility] Contact Info) Description 03/26/2023 Orders Only [facility] [address] [place], [place] [phone] Indy Westbrook MD [address] [place] [address] Type 1 diabetes mellitus with hyperglycemia (CMS/HCC) [...] Description 06/10/2025 11:15 AM EST Office Visit [facility] [address] [place] [phone] Indy Westbrook MD [address] [place] [phone] documented as of this encounter Visit Diagnoses Diagnosis Type 1 diabetes mellitus with hyperglycemia (HCC)- Primary documented in this encounter Care Teams Threader Relationship Specialty Start Date End Date Indy Westbrook MD [address] [place] [phone] PCP - General Family Medicine 04/02/19 documented as of this encounter
--- OUTSIDE RECORDS SUMMARY | 2025-03-09 14:36 | XMS_ITS | Encounter Summary ---
Author Organization [employer] Address [address] [facility] [address]t [place] [address] Care Team Providers Care Institution Director Name Role Phone Indy Westbrook MD Primary Care Provider + Encounter Details Date Type Department Care Team ([facility] Contact Info) Description 01/07/2025 Results Follow-Up [facility] MEDICINE [address] [place], [place] [phone] Indy Westbrook MD [address] [place] [address] Chlamydia/N. Gonorrhoeae RNA, TMA, Urogenitial Social History Tobacco Use Types Packs/Day Years [...] Encounter Note - Indy Westbrook MD - 01/07/2025 2:38 PM EDT Please send Stable Lab Letter documented in this encounter Plan of Treatment Upcoming Encounters Date Type Department Care Team (Late st Contact Info) Description 06/10/2025 11:15 AM EST Office Visit [facility] MEDICINE [address] [place] [phone] Indy Westbrook MD [address] [place] [phone] documented as of this encounter Visit Diagnoses Not on filedocumented in this encounter Additional Health Concerns Assessment Noted Time PHQ-9 Depression Total Score: 2 10/12/19 25 2:45 PM EDT documented as of this encounter Care Teams Institution Director Relationship Specialty Start Date End Date Indy Westbrook MD [address] [place] [phone] PCP - General Family Medicine 04/02/19 documented as of this encounter
--- OUTSIDE RECORDS SUMMARY | 2025-03-09 14:36 | XMS_ITS | Encounter Summary ---
Author Organization [employer] Address [address] [facility] 7t [place] [address] Care Team Providers Care Smoke Inspector Name Role Phone Indy Westbrook MD Primary Care Provider + Encounter Details Date Type Department Care Team ([facility] Contact Info) Description 03/24/2023 Abstract [facility] [address] [place] [address] Asha Ellison BDS Social History Tobacco Use [...] Description 06/10/2025 11:15 AM EST Office Visit [facility] [address] [place] [address] Indy Westbrook MD [address] [place] [address] documented as of this encounter Visit Diagnoses Not on filedocumented in this encounter Care Teams Smoke Inspector Relationship Specialty Start Date End Date Indy Westbrook MD [address] [place] [address] [phone] PCP - General Family Medicine 04/02/19 documented as of this encounter
--- OUTSIDE RECORDS SUMMARY | 2025-03-09 14:36 | XMS_ITS | Encounter Summary ---
Author Organization [employer] Address [address] [place] [address] [address] [place] [address] Care Team Providers Care Patient Services Technician Name Role Phone Indy Westbrook MD Primary Care Provider + Reason for Referral * Imaging (Routine) - Closed Specialty Diagnoses / Procedures Referred By Merlyn t Referred To Contact Diagnoses Iron deficiency anemia due to chronic blood loss DUB (dysfunctional uterine bleeding) Procedures Us Pelvis complete Indy Westbrook MD [address] [place], [place] Phone: tel: fax: [address] [phone] Phone: tel: fax: Referral ID Status Reason Start Date Expiration Date Visits Re quested Visits Authorized [id number] Closed 07/31/2022 01/27/2023 1 1 * Imaging (Routine) - Closed Specialty Diagnoses / Procedures Referred By Contac t Referred To Contact Diagnoses Iron deficiency anemia due to chronic blood loss DUB (dysfunctional uterine bleeding) Procedures US Pelvis Transvaginal Indy Westbrook MD [address] [place], [place] Phone: tel: fax: [address] [phone] Phone: tel: fax: Referral ID Status Reason Start Date Expiration Date Visits Re quested Visits Authorized [id number] Closed 07/31/2022 01/27/2023 1 1 Encounter Details Date Type Department Care Team (Late st Contact Info) Description 07/31/2022 Orders Only [facility] MED[facility] [address] [place] [address] Indy Westbrook MD [address] [place], [place] [phone] Iron deficiency anemia due to chronic blood [...] Description 06/10/2025 11:15 AM EST Office Visit [facility] [address] [place] [address] Indy Westbrook MD [address] [place] [address] Scheduled Orders Name Type Priority Associated Diagnoses [...] PM EDT Narrative 08/21/2022 10:07 PM EDT [address] [address] Ultrasound Report Signed Patient: Minnie Ny MR#: [id number] 0 : 1995 Acct:[id number] Age/Sex: 27 / F ADM Date: 08/19/22 Loc: HO.US Attending Dr: Indy Westbrook MD Ordering Physician: Indy Westbrook MD Date of Service: 08/19/22 Procedure(s): US pelvic and transvaginal Accession Number(s): [id number] cc: Indy Westbrook MD EXAMINATION: US PELVIS [...] signed by Geoff Ness MD in OV> 08/21/222203 DD/ 1605 TD/TT: Tie Knitter Helper: [facility] Procedure Note Donotuseinterpreter, Image - 08/30/2022 [place] [address] Ultrasound Report Signed Patient: Anupama Ny#: [id number] 0 : 1995Acct:[id number] Age/Sex: 27 / FADM Date: 08/19/22 Loc: HO.US Attending Dr: Indy Westbrook MD Ordering Physician: Indy Westbrook MD Date of Service: 08/19/22 Procedure(s): US pelvic and transvaginal Accession Number(s): [id number] cc: Indy Westbrook MD EXAMINATION: US PELVIS [...] MD in OV> 08/21/224 DD/ 1605 TD/TT: Tie Knitter Helper: [facility] External Provider IMG US PROCEDURES Final Result documented in this encounter Visit Diagnoses Diagnosis Iron deficiency anemia due to chronic blood loss- Primary Iron deficiency anemia secondary to blood loss (chronic) DUB (dysfunctional uterine bleeding) Other disorder of menstruation and other abnormal bleeding from female genital tract documented in this encounter Care Teams Patient Services Technician Relationship Specialty Start Date End Date Indy Westbrook MD [address] [place] [phone] PCP - General Family Medicine 04/02/19 documented as of this encounter
--- OUTSIDE RECORDS SUMMARY | 2025-03-09 14:36 | XMS_ITS | Encounter Summary ---
Author Organization [employer] Address [address] [facility] [address] [place] [address] Care Team Providers Care Business Objects Architect Name Role Phone Indy Westbrook MD Primary Care Provider + Encounter Details Date Type Department Care Team (Latest Contact Info) Description 03/08/2025 Travel Social History Tobacco Use Types Packs/Day [...] 06/10/2025 11:15 AM EST Office Visit [facility] [address] [place] [id number] Indy Westbrook MD [address] [place] [address] documented as of this encounter Visit Diagnoses Not on filedocumented in this encounter Additional Health Concerns Assessment Noted Time PHQ-9 Depression Total Score: 2 10/12/19 25 2:45 PM EDT documented as of this encounter Care Teams Business Objects Architect Relationship Specialty Start Date End Date Indy Westbrook MD [address] [place] [address] PCP - General Family Medicine 04/02/19 documented as of this encounter
== END 2025-03-08 12:21 | disposition home or self-care (01) ==
LOC: HO.HHCLNP 12:20
PROVIDERS: Visit Provider Internal Medicine
DX: Z01.419 Encounter for gynecological examination (general) (routine) without abnormal findings (principal)
CPT/HCPCS: 88175